=== PATIENT | female | born 1985 | race Hispanic/Latino ===

== ENCOUNTER → 2019-01-28 16:21 | Outpatient (CLI) | payer OTHER, MEDICAID, SELFPAY ==
[2019-01-28 20:23] LABS: Urine N gonorrhoeae NOT DETECTED
[2019-01-28 20:49] LABS: Urine Chlamydia NOT DETECTED
== END ==
PROVIDERS: Visit Provider Physician Assistant
DX: Z11.3 Encounter for screening for infections with a predominantly sexual mode of transmission (principal)
CPT/HCPCS: 87491; 87591

== ENCOUNTER → 2019-01-28 16:38 | Outpatient (CLI) | payer OTHER, MEDICAID, SELFPAY ==
[2019-01-28 18:11] LABS: Hepatitis B Surface Antigen NEGATIVE s/c (NEGATIVE)
[2019-01-28 18:22] LABS: HIV 1 and 2 Antibody NEGATIVE (NEGATIVE); Hep C Virus Ab w/Reflex Quant NEGATIVE s/c (NEGATIVE)
[2019-01-30 17:23] LABS: RPR Screen Nonreactive (Nonreactive)
== END ==
PROVIDERS: Visit Provider Physician Assistant
DX: Z11.3 Encounter for screening for infections with a predominantly sexual mode of transmission (principal)
CPT/HCPCS: 36415; 86592; 86703; 86803; 87340; 87491; 87591

== ENCOUNTER 2019-03-27 09:04 | Emergency (ER) | payer OTHER, MEDICAID, SELFPAY ==
[2019-03-27 09:04] VITALS: BP 108/67; PULSE 72; RESP 16; TEMP 37.3; O2SAT 99
--- NOTE | 2019-03-27 09:36 | ED_ITS ---
HPI - Fall General Chief Complaint: Fall Stated Complaint: Fall at work/rt side and leg pain DEAF Time Seen by Provider: 03/27/19 09:35 Source: patient Mode of arrival: ambulatory Limitations: no limitations History of Present Illness HPI Narrative: 33-year-old deaf female who is seen in the emergency department after ground level fall. Patient was walking in a lot when she tripped or fell over a driving bump/speed bump. Patient states that she sort of tripped fell with her right arm outstretched but also hit her on the right side of her chest and her right leg. And sort of did a tumbling fall into a ditch. Patient did not fall a significant height. Patient did not hit her head, she denies loss of consciousness. She did states short of breath when she landed on her chest but no longer. She denies any nausea or vomiting. She does have an abrasion on her right porter. Patient states her tetanus is up-to-date. She does take medications for seizure including Keppra, Topamax, folic acid and took 1 ibuprofen for pain prior to arrival. Related Data Home Medications Medication Instructions Recorded Confirmed trazodone #0 08/01/17 03/19/19 levetiracetam 500 mg PO BID 03/27/19 03/27/19 topiramate 03/27/19 topiramate 03/27/19 Previous Rx's Medication Instructions Recorded lamotrigine [Lamictal] 100 mg PO BID #60 tab 09/23/16 Allergies Allergy/AdvReac Type Severity Reaction Status Date / Time latex Allergy Mild ITCHING Verified 03/19/19 15:16 morphine Allergy Mild Verified 03/19/19 15:16 acetaminophen [From Fioricet] AdvReac Verified 03/27/19 09:20 butalbital [From Fioricet] AdvReac Verified 03/27/19 09:20 caffeine [From Fioricet] AdvReac Verified 03/27/19 09:20 Review of Systems Review of Systems ROS Unobtainable: All systems reviewed & are unremarkable except as noted in HPI and below Exam Narrative Exam Narrative: GEN: well nourished, well appearing female, alert and oriented x 3, patient appears to be in mild distress. HEENT: Atraumatic, pupils are equal round reactive to light, extraocular movements are intact, nares are clear, no facial trauma noted. HEART: Regular rate and rhythm without murmur, clicks, rubs. No carotid bruits, pulses are equal in upper and lower extremities LUNGS:Lungs clear to auscultation, no wheezes, rales, crackles, chest moves symmetrically ABD:bowel sounds normal, soft, non-tender, no guarding, rebound, rigidity, no masses noted, no hepatosplenomegaly :No CVA tenderness BACK: No cervical, thoracic or lumbar vertebral point tenderness. Patient has normal range of motion. Patient's gait is until. Rectal exam is deferred. Muscle strength is 5/5 in lower extremities, DTRs are 2/4 and lower extremities. Normal sensation in all 5 extremities. MSCL: Patient has mild tenderness over the right ribs but has full range of motion. She also has some mild tenderness over the hip and thigh although she is ambulating, no muscle atrophy, muscles strength 5/5 upper and lower extremities, full range of motion, normal gait NEURO:CN 2-12 intact, sensation normal. SKIN: Patient has an abrasion on her right anterior porter but does not appear deep or gapped that is 4cm in length. Initial Vital Signs Initial Vital Signs: Vital Signs Temperature 99.2 F 03/27/19 09:04 Pulse Rate 72 03/27/19 09:04 Respiratory Rate 16 03/27/19 09:04 Blood Pressure 108/67 03/27/19 09:04 Pulse Oximetry 99 03/27/19 09:04 [facility] Surgical History Status post appendectomy Status post loop electrosurgical excision procedure (LEEP) of cervix Social History Smoking Status: Never smoker Social History Smoking Status: Never smoker Scores GCS [place] coma scale eye opening: Spontaneous [place] coma scale verbal response: Orientated [place] coma scale motor response: Obey commands [place] coma scale total score: 15 Course Orders Ordered: ED Orders 03/27/19 09:35 XR chest 1V Stat XR hip w pel if done RT 2V Stat Discontinued Medications Bacitracin (Bacitracin) 1 applic TOP NOW ONE Stop: 03/27/19 11:11 Last Admin: 03/27/19 11:33 Dose: 1 applic Documented by: MEISENB Ketorolac Tromethamine (Toradol) 30 mg IM NOW ONE Stop: 03/27/19 09:36 Last Admin: 03/27/19 09:52 Dose: 30 mg Documented by: LAUREN Vital Signs Vital signs: Vital Signs - 8 hr 03/27/19 09:04 03/27/19 11:07 Temperature 99.2 F Pulse Rate 72 68 Respiratory Rate 16 16 Blood Pressure 108/67 Blood Pressure [Left Arm] 95/58 L Pulse Oximetry 99 99 MDM - Fall Imaging Data Chest x-ray: Radiologist's impression: [address] [address] XRay Report Signed Patient: Eli Stevens [facility]#: [id number] : 1985Acct:[id number] Age/Sex: 33 / FDate of Service: 03/27/19 Loc: ED Accession Number: [id number] Procedure: XR chest 1V Ordering Provider: Kelly Austin D.O. PROCEDURE: XR CHEST 1V INDICATIONS: fall, right rib pain TECHNIQUE: One view of the chest was acquired. COMPARISON: [facility], CHEST 1 VIEW, 05/18/2014, 7:42. FINDINGS: Surgical changes and devices: None. Lungs and pleura: Lungs are clear. No pleural effusions or pneumothorax. Mediastinum: Mediastinal contours appear normal. Heart size is normal. Bones and chest wall: No suspicious bony lesions. Overlying soft tissues appear unremarkable. IMPRESSION: No acute cardiopulmonary findings. Dictated by: Rosy Eason M.D. on 03/27/2019 at 10:20 Approved by: Rosy Eason M.D. on 03/27/2019 at 10:20 Hip xray: Radiologist's impression: [address] [address] XRay Report Signed Patient: Eli Stevnes [facility]#: [id number] : 1985Acct:[id number] Age/Sex: 33 / FDate of Service: 03/27/19 Loc: ED Accession Number: [id number] Procedure: XR hip w pel if done RT 2V Ordering Provider: Kelly Austin D.O. PROCEDURE: XR HIP W PEL IF DONE RT 2V INDICATIONS: right hip/leg pain TECHNIQUE: AP pelvis with lateral view(s) of the right hip(s). COMPARISON: [facility], CR, XR CHEST 1V, 03/27/2019, 9:40. FINDINGS: Bones: No fractures or dislocations. Pelvic ring appears intact. No suspicious bony lesions. Soft tissues: The visualized bowel gas pattern is normal. No suspicious soft tissue calcifications. IMPRESSION: No acute radiographic findings. If pain persists, followup imaging in 5-7 days is recommended to exclude occult fracture. Dictated by: Rosy Eason M.D. on 03/27/2019 at 10:20 Approved by: Rosy Eason M.D. on 03/27/2019 at 10:21 [facility] Narrative Medical decision making narrative: No fracture, patient does have an abrasion on her anterior porter and likely has some discomfort secondary to rib contusion although no ecchymosis is noted. Plan to continue ibuprofen and Tylenol as needed. Discharge Plan Departure Patient Disposition: Home Clinical Impression: Abrasion of leg, right, Contusion of thigh, right, Contusion of rib, Fall Discharge Date/Time: 03/27/19 11:27 Instructions: DI for Abrasion Activity Restrictions/Additional Instructions: Follow-up with primary care in the next 5-7 days if your symptoms are not improving. Occasionally individuals can have very small or occult fractures that are not noted until the bone is healing and these can be detected on repeat x-rays in 7-10 days from initial injury. Recommend Tylenol up to a 1000 mg every 8 hours and/or ibuprofen up to 800 mg every 8 hours as needed for pain. You may use moist heat to the affected area. Wound Care: Keep wound(s) clean and dry. Wash twice daily with soap and water only. Do not use over the counter products (alcohol or peroxide)on the wounds unless instructed by a physician, you may apply triple antibiotic ointment twice daily to the abrasion on your porter Return if fever greater than 100.4 Fahrenheit, increased swelling, increasing pain or worsening symptoms such as increased discharge or spreading redness. New lightheadedness, passing out, chest pain or shortness of breath that is worsening, persistent vomiting, new weakness, numbness, rapidly spreading bruising or other new or concerning symptoms. Prescriptions: No Action lamotrigine [Lamictal] 100 MG tablet 100 mg PO BID Qty: 60 RF: 3 trazodone 50 MG tablet Qty: 0 RF: 0 levetiracetam 500 mg tablet 500 mg PO BID RF: 0 topiramate 25 mg tablet RF: 0 topiramate 50 mg tablet RF: 0
[2019-03-27] MEDS: KETOROLAC 60 MG/2 ML VIAL 30 MG IM (09:52)
--- NOTE | 2019-03-27 10:30 | PC.NURSE ---
reports tailbone pain
[2019-03-27 11:07] VITALS: BP 95/58; PULSE 68; RESP 16; O2SAT 99
[2019-03-27] MEDS: BACITRACIN OINT 0.9 GM PCKT 1 APPLIC TOP (11:33)
== END 2019-03-27 11:27 | disposition home or self-care (01) ==
PROVIDERS: Emergency Provider Emergency Medicine
DX: S80.811A Abrasion, right lower leg, initial encounter (principal); S70.11XA Contusion of right thigh, initial encounter; S20.219A Contusion of unspecified front wall of thorax, initial encounter; W19.XXXA Unspecified fall, initial encounter
CPT/HCPCS: 71045; 73502; 96372; 99283; J1885

== ENCOUNTER 2019-04-02 11:36 | Emergency (ER) | payer OTHER, MEDICAID, SELFPAY ==
--- NOTE | 2019-04-02 12:12 | DI.RAD.S_ITS ---
PROCEDURE: XR RIBS LT MIN 3V W CXR1V INDICATIONS: s/p fall 6 days ago, pain not improving TECHNIQUE: 2 views of the left ribs were acquired, along with a single view chest. COMPARISON: None. FINDINGS: Surgical changes and devices: None. Bones and chest wall: No fractures or dislocations. No suspicious bony lesions. Overlying soft tissues appear unremarkable. Lungs and pleura: No pleural effusions or pneumothorax. Lungs appear clear. Mediastinum: Mediastinal contours appear normal. Heart size is normal. IMPRESSION: No fracture found, no pneumothorax identified. Dictated by: Hal Delgado M.D. on 04/02/2019 at 12:53 Approved by: Hal Delgado M.D. on 04/02/2019 at 12:54
--- NOTE | 2019-04-02 12:14 | ED.DIZZY ---
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 She reports ear pressure but no other cold symptoms. She had similar symptoms in the past but had not lasted this long or this severe. She also states she has been hearing a loud noise when the cars are passing-by and some humming nose. Patient denies urinary symptoms, diarrhea, chest pain, breathing difficulty. Patient reports some blurred vision with this. Patient was seen here 6 days ago after she had fall after trip on a parking bump. She was evaluated and had imaging tests done on right hip and chest. Patient reports since then her dizziness got worse and feeling more tired with pain all over her body. She reports no vomiting but has nausea. Patient also reports pain on left ribs and back has not been improving even after taking [id number] ibuprofen. She has a history of seizure and had last seizure about 2 weeks ago. Related Data Home Medications Medication Instructions Recorded Confirmed trazodone #0 08/01/17 03/19/19 levetiracetam 500 mg PO BID 03/27/19 03/27/19 topiramate 03/27/19 topiramate 03/27/19 Previous Rx's Medication Instructions Recorded lamotrigine [Lamictal] 100 mg PO BID #60 tab 09/23/16 meclizine 25 mg PO BID-TID PRN #10 tab 04/02/19 ondansetron 4 mg PO Q6-8H PRN #7 tab 04/02/19 Allergies Allergy/AdvReac Type Severity Reaction Status Date / Time latex Allergy Mild ITCHING Verified 03/19/19 15:16 morphine Allergy Mild Verified 03/19/19 15:16 acetaminophen [From Fioricet] AdvReac Verified 03/27/19 09:20 butalbital [From Fioricet] AdvReac Verified 03/27/19 09:20 caffeine [From Fioricet] AdvReac Verified 03/27/19 09:20 Review of Systems <MALINA Toth - Last Filed: 04/03/19 02:24> Review of Systems Narrative: General: Reports generalized weakness. Denies fever, chills, malaise, sweats. HEENT: Reports ear pressure and dizziness. Denies sinus pain, ear pain, sore throat, difficulty swallowing. Respiratory: Denies dyspnea, cough, wheezing, hemoptysis, sputum. Cardiovascular: Denies chest pain, palpitations, orthopnea, edema. Gastrointestinal: Reports nausea. Denies vomiting, abdominal pain, diarrhea, constipation, melena. : Denies dysuria, frequency, incontinence, hematuria, urinary retention. Musculoskeletal: Reports left ribs and back pain. Denies weakness, joint pain. Skin: Abrasions to left lower leg since fall last week. Otherwise denies rash, skin lesions, or other. Neurologic: See HPI Psychiatric: No concerning psychosocial issues. 12-point review of systems is negative except for those stated above. PFSH <MALINA Toth - Last Filed: 04/03/19 02:24> Surgical History Status post appendectomy Status post loop electrosurgical excision procedure (LEEP) of cervix Social History Smoking Status: Never smoker Social History Smoking Status: Never smoker Exam <MALINA Toth - Last Filed: 04/03/19 02:24> Narrative Exam Narrative: GEN: Alert, oriented x 3, well appearing and nourished, and in no acute distress. Head: Normal cephalic, atraumatic. No scalp or temporal tenderness, palpable mass or rash. EYES: Pupils are equal, round, and reactive to light and accommodation. Extraocular muscles are intact bilaterally. There is no subconjunctival hemorrhage, exudate and sclera non-icteric. ENT: Bilateral auditory canals and tympanic membranes clear. Hearing grossly intact. Nose without bleeding, purulent discharge or deviation. Facial sinuses nontender to palpate. Mucous membrane moist, no mucosal lesion. Throat without erythema, tonsillar hypertrophy or exudate. Uvula in midline, airway patent. Neck: Trachea in midline. No JVD, non-tender without lymphadenopathy. No masses or thyroid megaly. Supple, non-tender and no meningeal signs. CARDIAC: Normal regular rate and rhythm without murmurs, gallops, or rubs. No chest wall tenderness. No peripheral edema, cyanosis or pallor. Capillary refill is less than 2 seconds. RESPIRATORY: Lungs are cleat to auscultate bilaterally. No cough, wheezes, rales, or rhonchi. No stridor, respiratory distress, increase work of breathing, or accessary muscle used. ABD: Abdomen soft, nontender and non-distended. No guarding or rebound tenderness to palpate. Bowel sounds are normal in all 4 quadrants. There is no palpable masses or organomegaly. EXT: Full painless ROM of all extremities with no loss of sensation, strength, effusion or edema. SKIN: Abrasion to left lower leg. Warm, dry, normal color for patient. No erythema, lesions or rash over visible areas. BACK: Tender to palpate in L anterior and posterior ribs without deformity or crepitance. NEUROLOGICAL: Alert and oriented to place, time and person. Sensation and motor function intact bilaterally. No facial droops, dysphagia. PSYCHIATRIC: Good judgement and reason, without hallucinations, abnormal affect or abnormal behaviors during the examination. Patient is not suicidal. Initial Vital Signs Initial Vital Signs: Vital Signs Temperature 97.8 F 04/02/19 12:19 Pulse Rate 72 04/02/19 12:19 Respiratory Rate 16 04/02/19 12:19 Blood Pressure 136/67 04/02/19 12:19 Pulse Oximetry 100 04/02/19 12:19 <Parminder Vallejo DO - Last Filed: 04/10/19 18:55> Initial Vital Signs Initial Vital Signs: Vital Signs Temperature 97.8 F 04/02/19 12:19 Pulse Rate 72 04/02/19 12:19 Respiratory Rate 16 04/02/19 12:19 Blood Pressure 136/67 04/02/19 12:19 Pulse Oximetry 100 04/02/19 12:19 Scores <MALINA Toth - Last Filed: 04/03/19 02:24> GCS [place] coma scale eye opening: Spontaneous [place] coma scale verbal response: Orientated [place] coma scale motor response: Obey commands [place] coma scale total score: 15 Course <MALINA Toth - Last Filed: 04/03/19 02:24> Orders Ordered: Discontinued Medications Meclizine HCl (Antivert) 25 mg PO NOW ONE Stop: 04/02/19 12:13 Last Admin: 04/02/19 12:40 Dose: 25 mg Documented by: ZEB Ondansetron HCl (Zofran) 4 mg IV NOW ONE Stop: 04/02/19 12:13 Last Admin: 04/02/19 12:40 Dose: 4 mg Documented by: ZEB Vital Signs Vital signs: Vital Signs - 8 hr 04/02/19 12:19 Temperature 97.8 F Pulse Rate 72 Respiratory Rate 16 Blood Pressure 136/67 Pulse Oximetry 100 <Parminder Vallejo DO - Last Filed: 04/10/19 18:55> Orders Ordered: Discontinued Medications Meclizine HCl (Antivert) 25 mg PO NOW ONE Stop: 04/02/19 12:13 Last Admin: 04/02/19 12:40 Dose: 25 mg Documented by: ZEB Ondansetron HCl (Zofran) 4 mg IV NOW ONE Stop: 04/02/19 12:13 Last Admin: 04/02/19 12:40 Dose: 4 mg Documented by: ZEB Vital Signs Vital signs: Vital Signs - 8 hr 04/02/19 12:19 Temperature 97.8 F Pulse Rate 72 Respiratory Rate 16 Blood Pressure 136/67 Pulse Oximetry 100 MDM - Dizziness <MALINA Toth - Last Filed: 04/03/19 02:24> Differential Diagnosis Differential diagnosis: Likely benign paroxysmal positional vertigo and acute vestibular neuronitis Medical Records Attestation: I reviewed the patient's medical records. Lab Data Attestation: I reviewed the patient's lab results. Result diagrams: 04/02/19 12:13 04/02/19 12:13 Labs: Lab Results 04/02/19 04/02/19 Range/Units 12:13 12:13 WBC 6.2 (4.5-11.0) X10^3/uL RBC 4.28 (4.0-5.2) X10^6/uL Hgb 13.2 (12.0-16.0) g/dL Hct 38.6 (36-46) % MCV 90.3 (80-100) fL MCH 30.9 (26-34) PG MCHC 34.2 (30-36) % RDW 13.6 (11.6-14.8) % Plt Count 269 (150-400) X10^3/uL Neut % (Auto) 63.9 (50-75) % Lymph % (Auto) 24.0 L (25-40) % [place] % (Auto) 9.3 (3-14) % Eos % (Auto) 1.9 L (2-4) % Baso % (Auto) 0.9 (0-2) % Neut # (Auto) 4000 (7211-5071) /uL Lymph # (Auto) 1500 (6595-6602) /uL [place] # (Auto) 600 (0-900) /uL Eos # (Auto) 100 (0-450) /uL Baso # (Auto) 100 (0-100) /uL Sodium 140 (137-145) mmol/L Potassium 3.5 (3.4-5.1) mmol/L Chloride 106 (98-107) mmol/L Carbon Dioxide 24 (22-32) mmol/L BUN 16 (7-17) mg/dL Creatinine 0.70 (0.52-1.04) mg/dL Estimated GFR > 60.0 (>60) mL/min BUN/Creatinine Ratio 22.9 H (6-22) Glucose 72 (70-100) mg/dL Calcium 9.0 (8.4-10.2) mg/dL Point of Care Testing Test Results Negative Urine Dip Bedside Urine Glucose Negative Bedside Urine Bilirubin - Negative Bedside Urine Ketone - Negative Urine Specific [place] 1.015 Bedside Urine Occult Blood - Negative Bedside Urine pH 7.0 Bedside Urine Protein - Negative Bedside Urine Urobilinogen - Negative Bedside Urine Nitrite - Negative Bedside Urine Leukocytes - Negative Esterase Imaging Data XR-Ribs L: Radiologist's impression: [address] [address] XRay Report Signed Patient: Eli Stevens [facility]#: [id number] : 1985Acct:[id number] Age/Sex: 33 / FDate of Service: 04/02/19 Loc: ED Accession Number: [id number] Procedure: XR ribs LT min 3V w CXR1V Ordering Provider: Dakota Wagner PROCEDURE: XR RIBS LT MIN 3V W CXR1V INDICATIONS: s/p fall 6 days ago, pain not improving TECHNIQUE: 2 views of the left ribs were acquired, along with a single view chest. COMPARISON: None. FINDINGS: Surgical changes and devices: None. Bones and chest wall: No fractures or dislocations. No suspicious bony lesions. Overlying soft tissues appear unremarkable. Lungs and pleura: No pleural effusions or pneumothorax. Lungs appear clear. Mediastinum: Mediastinal contours appear normal. Heart size is normal. IMPRESSION: No fracture found, no pneumothorax identified. Dictated by: Hal Delgado M.D. on 04/02/2019 at 12:53 Approved by: Hal Delgado M.D. on 04/02/2019 at 12:54 ECG Data Attestation: I personally reviewed and interpreted this ECG as follows: Prior ECG tracings: available for review Interpretation: Sinus bradycardia with sinus arrhythmia rate at 56. Normal [place]. No ST elevation or depressioin. Previous EKG-SR MDM Narrative Medical decision making narrative: This patient reports dizziness with spinning sensation and left posterior and lateral rib pain since she fell 6 days ago after she had mechanical fall. She reports hearing loud noises, humming sounds and ear pressure without having other URI symptoms. She has a history of deaf and states usually does not hear noises. There is no obvious neurological deficit per exam except hearing. Patient was medicated with meclizine and Zofran for vertigo sensation. EKG was normal sinus [place] rhythm. Rib/chest x-ray was obtained without acute findings such as fracture, pneumonia, dislocation. Blood tests were remarkable including CBC and BMP. Urine test was negative for infection and . Patient reports her dizziness has improved after the medication and would like to go home by catching 4 o'clock bus. Return precautions were discussed with the patient and patient advised to follow with the primary care physician at [facility]. Patient was discharged to home with meclizine and Zofran. Patient agrees with treatment plan and no further questions were expressed at this time. <Parminder Vallejo DO - Last Filed: 04/10/19 18:55> Lab Data Labs: Lab Results 04/02/19 04/02/19 Range/Units 12:13 12:13 WBC 6.2 (4.5-11.0) X10^3/uL RBC 4.28 (4.0-5.2) X10^6/uL Hgb 13.2 (12.0-16.0) g/dL Hct 38.6 (36-46) % MCV 90.3 (80-100) fL MCH 30.9 (26-34) PG MCHC 34.2 (30-36) % RDW 13.6 (11.6-14.8) % Plt Count 269 (150-400) X10^3/uL Neut % (Auto) 63.9 (50-75) % Lymph % (Auto) 24.0 L (25-40) % [place] % (Auto) 9.3 (3-14) % Eos % (Auto) 1.9 L (2-4) % Baso % (Auto) 0.9 (0-2) % Neut # (Auto) 4000 (0218-6408) /uL Lymph # (Auto) 1500 (2273-5846) /uL [place] # (Auto) 600 (0-900) /uL Eos # (Auto) 100 (0-450) /uL Baso # (Auto) 100 (0-100) /uL Sodium 140 (137-145) mmol/L Potassium 3.5 (3.4-5.1) mmol/L Chloride 106 (98-107) mmol/L Carbon Dioxide 24 (22-32) mmol/L BUN 16 (7-17) mg/dL Creatinine 0.70 (0.52-1.04) mg/dL Estimated GFR > 60.0 (>60) mL/min BUN/Creatinine Ratio 22.9 H (6-22) Glucose 72 (70-100) mg/dL Calcium 9.0 (8.4-10.2) mg/dL Point of Care Testing Test Results Negative Urine Dip Bedside Urine Glucose Negative Bedside Urine Bilirubin - Negative Bedside Urine Ketone - Negative Urine Specific [place] 1.015 Bedside Urine Occult Blood - Negative Bedside Urine pH 7.0 Bedside Urine Protein - Negative Bedside Urine Urobilinogen - Negative Bedside Urine Nitrite - Negative Bedside Urine Leukocytes - Negative Esterase Discharge Plan Departure Patient Disposition: Home Clinical Impression: Vertigo Discharge Date/Time: 04/02/19 14:09 Instructions: DI for Vertigo Activity Restrictions/Additional Instructions: You have been diagnosed with [dizziness/vertigo. Your x-ray test in her ribs does not show fracture or other acute findings and you're blood and urine tests were unremarkable.]. What to do: *Take your medications as directed. Meclizine will help with the dizziness and vertigo but this may cause drowsiness. Please be careful with balance. Zofran is ordered for nausea he can use both medications as needed for you're symptoms. *Follow up with your primary care provider at [facility] in 2-3 days, call for an appointment. Let them know you were seen in the ED and that we asked you to be seen in follow up. *Return to ED if you have any new, worsening, or concerning symptoms, such as [chest pain, breathing difficulty, unable to tolerate fluids, weakness to limb, vision change, worsening dizziness/vertigo, any acute concerns]. Prescriptions: New ondansetron 4 mg tablet,disintegrating 4 mg PO Q6-8H PRN (Reason: nausea and vomiting) Qty: 7 RF: 0 meclizine 25 mg tablet,chewable 25 mg PO BID-TID PRN (Reason: dizziness or vertigo) Qty: 10 RF: 0 No Action lamotrigine [Lamictal] 100 MG tablet 100 mg PO BID Qty: 60 RF: 3 trazodone 50 MG tablet Qty: 0 RF: 0 levetiracetam 500 mg tablet 500 mg PO BID RF: 0 topiramate 25 mg tablet RF: 0 topiramate 50 mg tablet RF: 0 <Parminder Vallejo, DO - Last Filed: 04/10/19 18:55> Sign Out Provider Sign Out Attestation: I was available for consultation during this patient's emergency department encounter
[2019-04-02 12:19] VITALS: BP 136/67; PULSE 72; RESP 16; TEMP 36.6; O2SAT 100; BMI 25.0
[2019-04-02 12:28] LABS: Add Manual Diff / Slide Review NO; Basophils Absolute Auto 100 /uL (0-100); Basophils Percent Auto 0.9 % (0-2); Eosinophils Absolute Auto 100 /uL (0-450); Eosinophils Percent Auto 1.9 % (2-4); Hematocrit 38.6 % (36-46); Hemoglobin 13.2 g/dL (12.0-16.0); Lymphocytes Absolute Auto 1500 /uL (1100-4500); Mean Corpuscular HGB Conc 34.2 % (30-36); Mean Corpuscular Hemoglobin 30.9 PG (26-34); Mean Corpuscular Volume 90.3 fL (80-100); Monocytes Absolute Auto 600 /uL (0-900); Monocytes Percent Auto 9.3 % (3-14); Neutrophils Absolute Auto 4000 /uL (1500-7000); Neutrophils Percent Auto 63.9 % (50-75); Platelet Count 269 X10^3/uL (150-400); Red Blood Cell Count 4.28 X10^6/uL (4.0-5.2); Red Cell Distribution Width 13.6 % (11.6-14.8); White Blood Cell Count 6.2 X10^3/uL (4.5-11.0)
[2019-04-02] MEDS: ONDANSETRON 4 MG/2 ML INJ IV (12:40)
[2019-04-02] MEDS: MECLIZINE HCL 12.5 MG TABLET 25 MG PO (12:40)
[2019-04-02 12:43] LABS: BUN Creatinine Ratio 22.9 (6-22); Blood Urea Nitrogen 16 mg/dL (7-17); Carbon Dioxide 24 mmol/L (22-32); Chloride 106 mmol/L (98-107); Estimated Glomerular Filt Rate > 60.0 mL/min (>60); Glucose 72 mg/dL (70-100); HEMOLYSIS 18 (0-50); Potassium 3.5 mmol/L (3.4-5.1); Sodium 140 mmol/L (137-145)
[2019-04-02 14:05] VITALS: BP 115/74; PULSE 59; RESP 17; O2SAT 100
--- NOTE | 2019-04-02 14:08 | PC.NURSE ---
DC instructions confirmed by language interpreter. verbalized understanding.
== END 2019-04-02 14:09 | disposition home or self-care (01) ==
PROVIDERS: Emergency Provider Nurse Practitioner Family
DX: R42 Dizziness and giddiness (principal); R07.81 Pleurodynia; Y99.0 Civilian activity done for income or pay
CPT/HCPCS: 36591; 71101; 80048; 81003; 81025; 85025; 93005; 96374; 99283; 99285; J2405

== ENCOUNTER 2019-06-29 05:57 | Emergency (ER) | payer OTHER, MEDICAID, SELFPAY ==
--- NOTE | 2019-06-29 06:04 | ED.PREGNANCY ---
HPI - <Master Barros DO - Last Filed: 06/29/19 22:45> General Chief complaint: OB/Uterine Contractions Stated complaint: thinks she having Miscarrage Time Seen by Provider: 06/29/19 06:03 Source: patient Mode of arrival: Ambulatory Limitations: language barrier History of Present Illness HPI Narrative: 33-year-old female nonsmoker with history of seizures is at unknown gestational age who presents with cramping and mild bleeding over the past few days. She denies fever or chills. She is not dizzy nor weak or lightheaded. She was seen and evaluated an outside facility a few weeks ago but is unsure of what the workup showed. She has been trying to obtain OB follow-up but has been unsuccessful thus far. She denies dysuria, frequency or urgency. She is not using pads so it is unclear exactly how much bleeding she is having MD Complaint: vaginal bleeding Onset (ago): day(s) Pain Consistency: intermittent Location: pelvis Severity: moderate Quality: Cramping Relieving factors: none Exacerbating factors: none Associated symptoms: vaginal bleeding Vaginal bleeding: heavy and clots Patient : Yes OB History - Current : no complications OB History - Previous Pregnancies: no complications care: none Related Data Home Medications Medication Instructions Recorded Confirmed trazodone #0 08/01/17 03/19/19 levetiracetam 500 mg PO BID 03/27/19 03/27/19 topiramate 03/27/19 topiramate 03/27/19 Previous Rx's Medication Instructions Recorded lamotrigine [Lamictal] 100 mg PO BID #60 tab 09/23/16 meclizine 25 mg PO BID-TID PRN #10 tab 04/02/19 ondansetron 4 mg PO Q6-8H PRN #7 tab 04/02/19 Allergies Allergy/AdvReac Type Severity Reaction Status Date / Time latex Allergy Mild ITCHING Verified 03/19/19 15:16 morphine Allergy Mild Verified 03/19/19 15:16 acetaminophen [From Fioricet] AdvReac Verified 03/27/19 09:20 butalbital [From Fioricet] AdvReac Verified 03/27/19 09:20 caffeine [From Fioricet] AdvReac Verified 03/27/19 09:20 Review of Systems <Master Barros DO - Last Filed: 06/29/19 22:45> Review of Systems Narrative: Patient is deaf, review of systems and history are obtained using full time staff interpreter on iPad Constitutional Constitutional: Denies chills, Denies fatigue, Denies fever(s), Denies frequent falls, Denies lethargy and Denies weakness Eyes Eyes: Denies change in vision, Denies eye discharge, Denies irritation and Denies loss of vision ENT Ears, Nose, Mouth, and Throat: Denies change in voice, Denies dizziness, Denies neck pain, Denies sore throat and Denies throat swelling Cardiovascular Cardiovascular: Denies chest pain, Denies irregular heart rhythm, Denies lightheadedness, Denies palpitations, Denies dyspnea, Denies dyspnea on exertion and Denies orthopnea Respiratory Respiratory: Denies cough, Denies dyspnea, Denies dyspnea on exertion and Denies wheezing Gastrointestinal Gastrointestinal: Denies abdominal pain, Denies change in bowel habits, Denies diarrhea, Denies nausea and Denies vomiting Genitourinary Genitourinary: Reports abnormal vaginal bleeding, Denies hematuria, Reports pelvic pain, Denies flank pain, Denies urinary incontinence and Denies urinary urgency Musculoskeletal Musculoskeletal: Denies back pain, Denies muscle weakness, Denies neck pain, Denies numbness and Denies tingling Integumentary/Breasts Skin/Breast: Denies pruritus, Denies erythema, Denies rash and Denies wounds Neurologic Neurologic: Denies behavioral changes, Denies confusion, Denies dizziness, Denies frequent falls, Denies loss of vision, Denies numbness, Denies tingling and Denies weakness Psychiatric Psychiatric: Denies anxiety, Denies behavioral changes, Denies confusion, Denies depression, Denies homicidal ideation and Denies suicidal ideation Endocrine Endocrine: Denies fatigue, Denies flushing and Denies palpitations Hematologic/Lymphatic Hematologic/Lymphatic: Denies easy bruising Allergic/Immunologic Allergic/Immunologic: Denies urticaria, Denies throat swelling and Denies wheezing PMFSH - <Master Barros, - Last Filed: 06/29/19 22:45> Past Medical History Patient : Yes Exam <Master Barros, - Last Filed: 06/29/19 22:45> Narrative Exam Narrative: GENERAL: [33] year old patient appears stated age. Well-nourished, well-developed patient, in mild distress. HEAD: Atraumatic. Normocephalic. EYES: Pupils equal round and reactive. Extraocular motions intact. No scleral icterus. No injection or drainage. ENT: Nose without bleeding, purulent drainage. Throat without erythema, tonsillar hypertrophy or exudate. Airway patent. NECK: Trachea midline. Non tender CARDIOVASCULAR: Regular rate and rhythm without murmurs, gallops, or rubs. RESPIRATORY: Clear to auscultation. Breath sounds equal bilaterally. No wheezes, rales, or rhonchi. GASTROINTESTINAL: Abdomen soft, non-tender, nondistended. EXTREMITIES: No edema or joint tenderness. BACK: Nontender without deformity or crepitance. No flank tenderness. NEURO: AOx3. SKIN: No rash or erythema of visible areas Initial Vital Signs Initial Vital Signs: Vital Signs Temperature 98.1 F 06/29/19 06:05 Pulse Rate 76 06/29/19 06:05 Respiratory Rate 15 06/29/19 06:05 Blood Pressure 99/61 06/29/19 06:05 Pulse Oximetry 100 06/29/19 06:05 <Lesley Petty DO - Last Filed: 06/29/19 09:05> Initial Vital Signs Initial Vital Signs: Vital Signs Temperature 98.1 F 06/29/19 06:05 Pulse Rate 76 06/29/19 06:05 Respiratory Rate 15 06/29/19 06:05 Blood Pressure 99/61 06/29/19 06:05 Pulse Oximetry 100 06/29/19 06:05 Course <Master Barros DO - Last Filed: 06/29/19 22:45> Course Course Narrative: patient signed out to Dr. Petty for final disposition Orders Ordered: ED Orders 06/29/19 06:17 US pelvic complete Stat 06/29/19 06:30 ABO RH Type Stat Complete Blood Count AUTO DIFF Stat HCG Quantitative Stat Vital Signs Vital signs: Vital Signs - 8 hr 06/29/19 06:05 Temperature 98.1 F Pulse Rate 76 Respiratory Rate 15 Blood Pressure 99/61 Pulse Oximetry 100 <DO Marino Weems Last Filed: 06/29/19 09:05> Orders Ordered: ED Orders 06/29/19 06:17 US pelvic complete Stat 06/29/19 06:30 ABO RH Type Stat Complete Blood Count AUTO DIFF Stat HCG Quantitative Stat Vital Signs Vital signs: Vital Signs - 8 hr 06/29/19 06:05 Temperature 98.1 F Pulse Rate 76 Respiratory Rate 15 Blood Pressure 99/61 Pulse Oximetry 100 MDM - OB/Uterine Contractions <Master Barros DO - Last Filed: 06/29/19 22:45> Lab Data Result diagrams: 06/29/19 06:30 Labs: Lab Results 06/29/19 06/29/19 06/29/19 Range/Units 06:30 06:30 06:30 WBC 6.4 (4.5-11.0) X10^3/uL RBC 4.33 (4.0-5.2) X10^6/uL Hgb 13.6 (12.0-16.0) g/dL Hct 40.2 (36-46) % MCV 92.9 (80-100) fL MCH 31.5 (26-34) PG MCHC 33.9 (30-36) % RDW 13.6 (11.6-14.8) % Plt Count 271 (150-400) X10^3/uL Neut % (Auto) 69.0 (50-75) % Lymph % (Auto) 19.2 L (25-40) % [place] % (Auto) 8.8 (3-14) % Eos % (Auto) 2.4 (2-4) % Baso % (Auto) 0.6 (0-2) % Neut # (Auto) 4400 (4660-6723) /uL Lymph # (Auto) 1200 (7502-2676) /uL [place] # (Auto) 600 (0-900) /uL Eos # (Auto) 200 (0-450) /uL Baso # (Auto) 0 (0-100) /uL HCG, Quant 49.51 mIU/mL Blood Type O Positive <Lesley Petty DO - Last Filed: 06/29/19 09:05> Lab Data Attestation: I reviewed the patient's lab results. Labs: Lab Results 06/29/19 06/29/19 06/29/19 Range/Units 06:30 06:30 06:30 WBC 6.4 (4.5-11.0) X10^3/uL RBC 4.33 (4.0-5.2) X10^6/uL Hgb 13.6 (12.0-16.0) g/dL Hct 40.2 (36-46) % MCV 92.9 (80-100) fL MCH 31.5 (26-34) PG MCHC 33.9 (30-36) % RDW 13.6 (11.6-14.8) % Plt Count 271 (150-400) X10^3/uL Neut % (Auto) 69.0 (50-75) % Lymph % (Auto) 19.2 L (25-40) % [place] % (Auto) 8.8 (3-14) % Eos % (Auto) 2.4 (2-4) % Baso % (Auto) 0.6 (0-2) % Neut # (Auto) 4400 (3716-4803) /uL Lymph # (Auto) 1200 (9270-3862) /uL [place] # (Auto) 600 (0-900) /uL Eos # (Auto) 200 (0-450) /uL Baso # (Auto) 0 (0-100) /uL HCG, Quant 49.51 mIU/mL Blood Type O Positive Imaging Data US pelvic: Radiologist's impression: Caution: Report not yet finalized and possibly incomplete! PROCEDURE: US PELVIC COMPLETE INDICATIONS: ; BLEEDING, PAIN TECHNIQUE: Real-time scanning was performed of the pelvic organs, with image documentation. Additional endovaginal scanning was necessary due to incomplete visualization of the adnexal and endometrial structures by transabdominal scanning. COMPARISON: [facility], , PELVIC COMPLETE, 04/13/2016, 15:25. [facility], , ABDOMEN COMPLETE, 03/08/2016, 11:12. [facility], [place], PELVIC COMPLETE, 06/04/2015, 12:23. FINDINGS: Transabdominal scanning: Limited scanning through the kidneys shows no hydronephrosis. No pathologic free abdominal or pelvic fluid. Endovaginal scanning: Uterus: Uterus is normal in size at 9 x 4.4 x 5.6 cm. The endometrium measures 4 mm in combined thickness. No findings of intrauterine can be seen. Ovaries: The right ovary measures 2.8 x 1.7 x 2 cm. The left ovary measures 2.2 x 1.2 x 2.1 cm and demonstrates a complex nonvascular cystic focus that measures up to 1.3 cm. The ovaries otherwise have a normal sonographic appearance. No adnexal masses are seen. IMPRESSION: No findings of an intrauterine can be seen. Given the history, this is felt most likely to be related to a completed spontaneous miscarriage. Differential diagnosis includes ectopic , however. Likely left ovarian corpus luteum. Close clinical followup, with serial beta-hCG and serial ultrasound are recommended, as clinically appropriate. Dictated by: Barry Liu M.D. on 06/29/2019 at 6:53 Transcribed by: CAROLINE on 06/29/2019 at 7:02 MDM Narrative Medical decision making narrative: Patient signed out to me by Dr. Barros. Ultrasound does not show any IUP and HCG is under 100, confirms miscarriage. Passenger Brakeman used patient given results of testing. All questions have been addressed. At this time she does show likely complete miscarriage, recommend follow-up with PCP. Discharge Plan Departure Patient Disposition: Home Clinical Impression: Complete miscarriage Discharge Date/Time: 06/29/19 09:14 Instructions: Miscarriage Activity Restrictions/Additional Instructions: *You have been diagnosed with miscarriage *What to do: This is an unfortunate thing that has happened. You may experience some more cramping for the next few days *Continue to take medications as directed Ibuprofen 800 mg every 8 hours with food if needed for [id number] pain Tylenol 1000 mg every 6 hours if needed for [id number] pain do not see more than 4000 mg in 1 day *Follow up with your primary care provider in 2-3 days *Return to ER if you should have vaginal bleeding more than 1 super pad or tampon an hour, increased abdominal pain not told Tylenol or ibuprofen or any new, worsening or concerning symptoms Prescriptions: No Action lamotrigine [Lamictal] 100 MG tablet 100 mg PO BID Qty: 60 RF: 3 trazodone 50 MG tablet Qty: 0 RF: 0 levetiracetam 500 mg tablet 500 mg PO BID RF: 0 topiramate 25 mg tablet RF: 0 topiramate 50 mg tablet RF: 0 ondansetron 4 mg tablet,disintegrating 4 mg PO Q6-8H PRN (Reason: nausea and vomiting) Qty: 7 RF: 0 meclizine 25 mg tablet,chewable 25 mg PO BID-TID PRN (Reason: dizziness or vertigo) Qty: 10 RF: 0 Referrals: [facility] [Outside] Stand Alone Forms: Work Release Note
[2019-06-29 06:05] VITALS: BP 99/61; PULSE 76; RESP 15; TEMP 36.7; O2SAT 100; BMI 22.1
--- NOTE | 2019-06-29 06:17 | DI.US.S_ITS ---
PROCEDURE: US PELVIC COMPLETE INDICATIONS: ; BLEEDING, PAIN TECHNIQUE: Real-time scanning was performed of the pelvic organs, with image documentation. Additional endovaginal scanning was necessary due to incomplete visualization of the adnexal and endometrial structures by transabdominal scanning. COMPARISON: [facility], [place], PELVIC COMPLETE, 04/13/2016, 15:25. [facility], [place], ABDOMEN COMPLETE, 03/08/2016, 11:12. [facility], [place], PELVIC COMPLETE, 06/04/2015, 12:23. FINDINGS: Transabdominal scanning: Limited scanning through the kidneys shows no hydronephrosis. No pathologic free abdominal or pelvic fluid. Endovaginal scanning: Uterus: Uterus is normal in size at 9 x 4.4 x 5.6 cm. The endometrium measures 4 mm in combined thickness. No findings of intrauterine can be seen. Ovaries: The right ovary measures 2.8 x 1.7 x 2 cm. The left ovary measures 2.2 x 1.2 x 2.1 cm and demonstrates a complex nonvascular hypoechoic focus that measures up to 1.3 cm. The ovaries otherwise have a normal sonographic appearance. No adnexal masses are seen. IMPRESSION: No findings of an intrauterine can be seen. Given the history, this is felt most likely to be related to a completed spontaneous miscarriage. Differential diagnosis includes ectopic , however. Likely left ovarian corpus luteum. Close clinical followup, with serial beta-hCG and serial ultrasound are recommended, as clinically appropriate. Note: No significant discrepancy from the preliminary report. Dictated by: Barry Liu M.D. on 06/29/2019 at 6:53 Transcribed by: CAROLINE on 06/29/2019 at 7:02 Approved by: Barry Liu M.D. on 06/29/2019 at 8:40
--- NOTE | 2019-06-29 06:30 | PC.NURSE ---
Reeling Machine Operator Ipad in use at bedside
[2019-06-29 06:48] LABS: Add Manual Diff / Slide Review NO; Basophils Absolute Auto 0 /uL (0-100); Basophils Percent Auto 0.6 % (0-2); Eosinophils Absolute Auto 200 /uL (0-450); Eosinophils Percent Auto 2.4 % (2-4); Hematocrit 40.2 % (36-46); Hemoglobin 13.6 g/dL (12.0-16.0); Lymphocytes Absolute Auto 1200 /uL (1100-4500); Lymphocytes Percent Auto 19.2 % (25-40); Mean Corpuscular HGB Conc 33.9 % (30-36); Mean Corpuscular Hemoglobin 31.5 PG (26-34); Mean Corpuscular Volume 92.9 fL (80-100); Monocytes Absolute Auto 600 /uL (0-900); Monocytes Percent Auto 8.8 % (3-14); Neutrophils Absolute Auto 4400 /uL (1500-7000); Platelet Count 271 X10^3/uL (150-400); Red Blood Cell Count 4.33 X10^6/uL (4.0-5.2); Red Cell Distribution Width 13.6 % (11.6-14.8); White Blood Cell Count 6.4 X10^3/uL (4.5-11.0)
[2019-06-29 07:18] LABS: HCG Quantitative /Beta subunit 49.51 mIU/mL
--- NOTE | 2019-06-29 07:38 | PC.NURSE ---
Obtained patient care. report manager used for shift change. Patient has no questions at this time. Paper and pen left at bedside to aid in communication if needed. Call light in reach. Patient updated on plan of care.
[2019-06-29 09:00] VITALS: BP 118/76; PULSE 86; RESP 12; O2SAT 100
== END 2019-06-29 09:14 | disposition home or self-care (01) ==
PROVIDERS: Emergency Medicine; Emergency Provider Emergency Medicine
DX: O03.9 Complete or unspecified spontaneous abortion without complication (principal)
CPT/HCPCS: 36415; 76830; 76856; 84702; 85025; 86900; 86901; 99282; 99284

== ENCOUNTER 2019-08-21 10:30 | Emergency (ER) | payer OTHER, MEDICAID, SELFPAY ==
[2019-08-21 10:30] VITALS: BP 153/115; PULSE 83; RESP 18; TEMP 36.9; O2SAT 98
[2019-08-21 11:33] VITALS: BP 108/56; PULSE 71; RESP 20; O2SAT 93
--- NOTE | 2019-08-21 11:49 | DI.RAD.S_ITS ---
PROCEDURE: XR CHEST 2V INDICATIONS: chest pain TECHNIQUE: 2 views of the chest were acquired. COMPARISON: [facility], , XR CHEST 1V, 03/27/2019, 9:40. [facility], , CHEST 1 VIEW, 05/18/2014, 7:42. FINDINGS: Surgical changes and devices: None. Lungs and pleura: Lungs are clear. No pleural effusions or pneumothorax. Mediastinum: Mediastinal contours are normal. Heart size is normal. Bones and chest wall: No suspicious bony abnormalities. Soft tissues appear unremarkable. IMPRESSION: Normal for age, source of current chest pain symptoms is not seen. Dictated by: Hal Delgado M.D. on 08/21/2019 at 13:22 Approved by: Hal Delgado M.D. on 08/21/2019 at 13:22
[2019-08-21 12:05] LABS: Add Manual Diff / Slide Review NO; Basophils Absolute Auto 100 /uL (0-100); Basophils Percent Auto 1.2 % (0-2); Eosinophils Absolute Auto 200 /uL (0-450); Eosinophils Percent Auto 2.3 % (2-4); Hematocrit 43.1 % (36-46); Hemoglobin 14.7 g/dL (12.0-16.0); Lymphocytes Absolute Auto 2100 /uL (1100-4500); Lymphocytes Percent Auto 27.6 % (25-40); Mean Corpuscular HGB Conc 34.1 % (30-36); Mean Corpuscular Hemoglobin 31.5 PG (26-34); Mean Corpuscular Volume 92.2 fL (80-100); Monocytes Absolute Auto 700 /uL (0-900); Monocytes Percent Auto 9.8 % (3-14); Neutrophils Absolute Auto 4500 /uL (1500-7000); Neutrophils Percent Auto 59.1 % (50-75); Platelet Count 286 X10^3/uL (150-400); Red Blood Cell Count 4.68 X10^6/uL (4.0-5.2); Red Cell Distribution Width 13.5 % (11.6-14.8); White Blood Cell Count 7.6 X10^3/uL (4.5-11.0)
[2019-08-21 12:12] VITALS: BP 109/67; PULSE 62; RESP 18; O2SAT 100
[2019-08-21 12:16] LABS: Alanine Aminotransferase 19 IU/L (<35); Albumin 4.8 g/dL (3.5-5.0); Albumin Globulin Ratio 1.6 (1.0-2.8); Alkaline Phosphatase 54 U/L (38-126); Aspartate Aminotransferase 23 IU/L (14-36); Bilirubin Total 0.5 mg/dL (0.2-1.3); Blood Urea Nitrogen 16 mg/dL (7-17); Calcium 9.2 mg/dL (8.4-10.2); Carbon Dioxide 25 mmol/L (22-32); Chloride 107 mmol/L (98-107); Creatine Kinase 117 U/L (30-135); Estimated Glomerular Filt Rate > 60.0 mL/min (>60); Glucose 72 mg/dL (70-100); HEMOLYSIS 45 (0-50); Potassium 3.5 mmol/L (3.4-5.1); Sodium 141 mmol/L (137-145); Total Protein 7.8 g/dL (6.3-8.2)
[2019-08-21 12:19] LABS: INR 0.9 (0.9-1.3); Prothrombin Time 10.6 SECONDS (10.1-12.7)
[2019-08-21 12:19] LABS: RBC Urine None Seen (0-5/HPF)
[2019-08-21 12:22] LABS: PTT Partial Thromboplastin Tim 32 SECONDS (26.4-36.2)
[2019-08-21 12:26] LABS: Bacteria Urine Moderate (10-30); Culture Indicated Urine Cult Not Indicated; Squamous Epithelial Cell Urine 5-10 /HPF (0-5/HPF); WBC Urine 5-10/HPF (0-5/HPF)
[2019-08-21 12:27] LABS: Troponin I < 0.012 ng/mL (0.01-0.034)
[2019-08-21 12:38] LABS: CKMB % Relative Index 1.5 % (1.5-5.0); Creatine Kinase MB 1.79 ng/mL (<2.37)
[2019-08-21 13:09] LABS: Influenza A - CEPHEID Flu A NEGATIVE (NEGATIVE); Influenza B - CEPHEID Flu B NEGATIVE (NEGATIVE)
[2019-08-21 13:10] VITALS: BP 117/70; PULSE 80; RESP 16; O2SAT 95
--- NOTE | 2019-08-21 13:29 | ED_ITS ---
HPI - Chest Pain <KALPANA Lynne - Last Filed: 08/21/19 21:09> General Chief Complaint: Chest Pain Stated Complaint: spitting blood,unsure where it came from Time Seen by Provider: 08/21/19 11:22 Source: patient Mode of arrival: Ambulatory Limitations: no limitations and other History of Present Illness HPI narrative: The patient is a 33-year-old female nonsmoker with history of sei zures and deafness who presents with a chief complaint of spitting up blood once today. She states that she has had chest pain since yesterday, started on and off but has recently been more constant. She states that she has had episodes of this chest pain over the years and she has been seen by multiple providers and multiple emergency department and told that has been anxiety. She denies any fevers nausea vomiting or diarrhea. She does complain of a slight decreased appetite. She states she did not cough up the blood, but rather spit after eating. She denies any trauma to her mouth. She denies any wheezing. She states she has ear pressure. She denies complains of general lightheadedness. Related Data Home Medications Medication Instructions Recorded Confirmed trazodone #0 08/01/17 03/19/19 levetiracetam 500 mg PO BID 03/27/19 03/27/19 topiramate 03/27/19 topiramate 03/27/19 Previous Rx's Medication Instructions Recorded lamotrigine [Lamictal] 100 mg PO BID #60 tab 09/23/16 meclizine 25 mg PO BID-TID PRN #10 tab 04/02/19 ondansetron 4 mg PO Q6-8H PRN #7 tab 04/02/19 ofloxacin 10 drop EAR-LEFT DAILY 7 Days #10 08/21/19 ml Allergies Allergy/AdvReac Type Severity Reaction Status Date / Time latex Allergy Mild ITCHING Verified 08/21/19 10:51 morphine Allergy Mild Verified 08/21/19 10:51 acetaminophen [From Fioricet] AdvReac Verified 08/21/19 10:51 butalbital [From Fioricet] AdvReac Verified 08/21/19 10:51 caffeine [From Fioricet] AdvReac Verified 08/21/19 10:51 Review of Systems <KALPANA Lynne - Last Filed: 08/21/19 21:09> Review of Systems Narrative: GENERAL: See HPI HEENT: See HPI RESPIRATORY: Denies dyspnea, cough, wheezing, hemoptysis, sputum. CARDIOVASCULAR: See HPI GASTROINTESTINAL: See HPI : Denies dysuria, frequency, incontinence, hematuria, urinary retention. MUSCULOSKELETAL: denies weakness, joint pain, or bony pain SKIN: Denies rash, skin lesions, or other NEUROLOGIC: Denies weakness, headache, numbness, change in speech, confusion, seizures, incoordination. PSYCHIATRIC: No concerning psychosocial issues. 12 point review of systems is negative except for those stated above Patient History <KALPANA Lynne - Last Filed: 08/21/19 21:09> Surgical History Status post appendectomy Status post loop electrosurgical excision procedure (LEEP) of cervix Social History Smoking Status: Never smoker Smoking Status: Never smoker alcohol intake frequency: 0-2 drinks per day Substance Use Type: marijuana Exam <KALPANA Lynne - Last Filed: 08/21/19 21:09> Narrative Exam Narrative: GENERAL: This is a well-nourished, well-developed patient, in no acute distress HEAD: Atraumatic. Normocephalic. No temporal or scalp tenderness. EYES: Pupils equal round and reactive. Extraocular motions intact. No scleral icterus. No injection or drainage. ENT: Nose without bleeding, purulent drainage or septal hematoma. Throat without erythema, tonsillar hypertrophy or exudate. Uvula midline. Airway patent. Bilateral TMs pearly gordon. Right canal within normal limits, left canal slightly erythematous and swollen. Painful to left ear pinna retraction NECK: Trachea midline. No JVD or lymphadenopathy. Supple, nontender, no meningeal signs. CARDIOVASCULAR: Regular rate and rhythm RESPIRATORY: Clear to auscultation. Breath sounds equal bilaterally. No wheezes, rales, or rhonchi. No cough. No increased respiratory effort. No accessory muscle use. GASTROINTESTINAL: Abdomen soft, non-tender, nondistended. No hepato- splenomegaly, or palpable masses. No guarding. EXTREMITIES: No clubbing, cyanosis, or edema. No joint tenderness, effusion, or edema noted. BACK: Nontender without deformity or crepitance. No flank tenderness. NEURO: AOx3. SKIN: No rash or erythema on visible skin Initial Vital Signs Initial Vital Signs: Vital Signs Temperature 98.4 F 08/21/19 10:30 Pulse Rate 83 08/21/19 10:30 Respiratory Rate 18 08/21/19 10:30 Blood Pressure 153/115 H 08/21/19 10:30 Pulse Oximetry 98 08/21/19 10:30 <Lesley Petty DO - Last Filed: 08/24/19 07:49> Initial Vital Signs Initial Vital Signs: Vital Signs Temperature 98.4 F 08/21/19 10:30 Pulse Rate 83 08/21/19 10:30 Respiratory Rate 18 08/21/19 10:30 Blood Pressure 153/115 H 08/21/19 10:30 Pulse Oximetry 98 08/21/19 10:30 Course <KALPANA Lynne - Last Filed: 08/21/19 21:09> Orders Ordered: ED Orders 08/21/19 12:10 Urine Microscopic Stat 08/21/19 12:26 Influenza A & B (PCR) Stat Vital Signs Vital signs: Vital Signs - 8 hr 08/21/19 13:10 08/21/19 14:34 Pulse Rate 80 62 Respiratory Rate 16 18 Blood Pressure [Left Arm] 117/70 108/67 Pulse Oximetry 95 100 <Lesley Petty DO - Last Filed: 08/24/19 07:49> Orders Ordered: ED Orders 08/21/19 12:10 Urine Microscopic Stat 08/21/19 12:26 Influenza A & B (PCR) Stat Vital Signs Vital signs: Vital Signs - 8 hr 08/21/19 13:10 08/21/19 14:34 Pulse Rate 80 62 Respiratory Rate 16 18 Blood Pressure [Left Arm] 117/70 108/67 Pulse Oximetry 95 100 MDM - Chest Pain <KALPANA Lynne Last Filed: 08/21/19 21:09> Lab Data Result diagrams: 08/21/19 11:50 08/21/19 11:50 Labs: Lab Results 08/21/19 08/21/19 08/21/19 Range/Units 11:50 11:50 11:50 WBC 7.6 (4.5-11.0) X10^3/uL RBC 4.68 (4.0-5.2) X10^6/uL Hgb 14.7 (12.0-16.0) g/dL Hct 43.1 (36-46) % MCV 92.2 (80-100) fL MCH 31.5 (26-34) PG MCHC 34.1 (30-36) % RDW 13.5 (11.6-14.8) % Plt Count 286 (150-400) X10^3/uL Neut % (Auto) 59.1 (50-75) % Lymph % (Auto) 27.6 (25-40) % Faulkner % (Auto) 9.8 (3-14) % Eos % (Auto) 2.3 (2-4) % Baso % (Auto) 1.2 (0-2) % Neut # (Auto) 4500 (7767-9311) /uL Lymph # (Auto) 2100 (3540-9118) /uL Faulkner # (Auto) 700 (0-900) /uL Eos # (Auto) 200 (0-450) /uL Baso # (Auto) 100 (0-100) /uL PT 10.6 (10.1-12.7) SECONDS INR 0.9 (0.9-1.3) APTT 32 (26.4-36.2) SECONDS Sodium 141 (137-145) mmol/L Potassium 3.5 (3.4-5.1) mmol/L Chloride 107 (98-107) mmol/L Carbon Dioxide 25 (22-32) mmol/L BUN 16 (7-17) mg/dL Creatinine 1.00 (0.52-1.04) mg/dL Estimated GFR > 60.0 (>60) mL/min BUN/Creatinine Ratio 16.0 (6-22) Glucose 72 (70-100) mg/dL Calcium 9.2 (8.4-10.2) mg/dL Total Bilirubin 0.5 (0.2-1.3) mg/dL AST 23 (14-36) IU/L ALT 19 (<35) IU/L Alkaline Phosphatase 54 (38-126) U/L Total Creatine Kinase 117 (30-135) U/L CK-MB (CK-2) 1.79 (<2.37) ng/mL CK-MB (CK-2) Rel Index 1.5 (1.5-5.0) % Troponin I < 0.012 (0.01-0.034) ng/mL Total Protein 7.8 (6.3-8.2) g/dL Albumin 4.8 (3.5-5.0) g/dL Globulin 3.0 (1.7-4.1) g/dL Albumin/Globulin Ratio 1.6 (1.0-2.8) Urine RBC (0-5/HPF) Urine WBC (0-5/HPF) Ur Squamous Epith Cells (0-5/HPF) Urine Bacteria (None) Ur Culture Indicated? Influenza A (RT-PCR) (NEGATIVE) Influenza B (RT-PCR) (NEGATIVE) 08/21/19 08/21/19 Range/Units 12:10 12:26 WBC (4.5-11.0) X10^3/uL RBC (4.0-5.2) X10^6/uL Hgb (12.0-16.0) g/dL Hct (36-46) % MCV (80-100) fL MCH (26-34) PG MCHC (30-36) % RDW (11.6-14.8) % Plt Count (150-400) X10^3/uL Neut % (Auto) (50-75) % Lymph % (Auto) (25-40) % Faulkner % (Auto) (3-14) % Eos % (Auto) (2-4) % Baso % (Auto) (0-2) % Neut # (Auto) (9449-0551) /uL Lymph # (Auto) (8988-2611) /uL Faulkner # (Auto) (0-900) /uL Eos # (Auto) (0-450) /uL Baso # (Auto) (0-100) /uL PT (10.1-12.7) SECONDS INR (0.9-1.3) APTT (26.4-36.2) SECONDS Sodium (137-145) mmol/L Potassium (3.4-5.1) mmol/L Chloride (98-107) mmol/L Carbon Dioxide (22-32) mmol/L BUN (7-17) mg/dL Creatinine (0.52-1.04) mg/dL Estimated GFR (>60) mL/min BUN/Creatinine Ratio (6-22) Glucose (70-100) mg/dL Calcium (8.4-10.2) mg/dL Total Bilirubin (0.2-1.3) mg/dL AST (14-36) IU/L ALT (<35) IU/L Alkaline Phosphatase (38-126) U/L Total Creatine Kinase (30-135) U/L CK-MB (CK-2) (<2.37) ng/mL CK-MB (CK-2) Rel Index (1.5-5.0) % Troponin I (0.01-0.034) ng/mL Total Protein (6.3-8.2) g/dL Albumin (3.5-5.0) g/dL Globulin (1.7-4.1) g/dL Albumin/Globulin Ratio (1.0-2.8) Urine RBC None seen (0-5/HPF) Urine WBC 5-10/hpf H (0-5/HPF) Ur Squamous Epith Cells 5-10 /hpf H (0-5/HPF) Urine Bacteria Moderate (10-30) H (None) Ur Culture Indicated? Cult not indicated Influenza A (RT-PCR) Flu a negative (NEGATIVE) Influenza B (RT-PCR) Flu b negative (NEGATIVE) Point of Care Testing Test Results Negative Urine Dip Bedside Urine Glucose Negative Bedside Urine Bilirubin + 1 Bedside Urine Ketone - Negative Urine Specific [place] 1.030 Bedside Urine Occult Blood - Negative Bedside Urine pH 6.0 Bedside Urine Protein +/- 15 Bedside Urine Urobilinogen - Negative Bedside Urine Nitrite - Negative Bedside Urine Leukocytes + 70 Esterase Imaging Data Chest x-ray: Radiologist's Impression: [facility] [place] [id number] XRay Report Signed Patient: Eli Stevens [facility]#: [id number] : 1985Acct:[id number] Age/Sex: 33 / FDate of Service: 08/21/19 Loc: ED Accession Number: [id number] Procedure: XR chest 2V Ordering Provider: Kelly Chapa PROCEDURE: XR CHEST 2V INDICATIONS: chest pain TECHNIQUE: 2 views of the chest were acquired. COMPARISON: [facility], LANDON, XR CHEST 1V, 03/27/2019, 9:40. [facility], CR, CHEST 1 VIEW, 05/18/2014, 7:42. FINDINGS: Surgical changes and devices: None. Lungs and pleura: Lungs are clear. No pleural effusions or pneumothorax. Mediastinum: Mediastinal contours are normal. Heart size is normal. Bones and chest wall: No suspicious bony abnormalities. Soft tissues appear unremarkable. IMPRESSION: Normal for age, source of current chest pain symptoms is not seen. Dictated by: Hal Delgado M.D. on 08/21/2019 at 13:22 Approved by: Hal Delgado M.D. on 08/21/2019 at 13:22 [facility] Narrative Medical decision making narrative: The patient is a 33-year-old female who presents with a chief complaint of spitting up blood. Her overall exam has no acute abnormalities other than otitis externa of her left side. Her chest x-ray shows no acute findings, her troponin is negative. I discussed at length the importance of following up with primary care provider. She has not been spitting or coughing up blood since her arrival to the emergency department. She has no signs of GI bleeding, no blood in her oropharynx, and is hemodynamically stable. I discussed at length return precautions the emergency department including concern of heart attack, concern of stroke etcetera. Patient has no questions or concerns upon discharge and states understanding of return precautions as well as follow-up care. <Lesley Petty, - Last Filed: 08/24/19 07:49> Lab Data Labs: Lab Results 08/21/19 08/21/19 08/21/19 Range/Units 11:50 11:50 11:50 WBC 7.6 (4.5-11.0) X10^3/uL RBC 4.68 (4.0-5.2) X10^6/uL Hgb 14.7 (12.0-16.0) g/dL Hct 43.1 (36-46) % MCV 92.2 (80-100) fL MCH 31.5 (26-34) PG MCHC 34.1 (30-36) % RDW 13.5 (11.6-14.8) % Plt Count 286 (150-400) X10^3/uL Neut % (Auto) 59.1 (50-75) % Lymph % (Auto) 27.6 (25-40) % Faulkner % (Auto) 9.8 (3-14) % Eos % (Auto) 2.3 (2-4) % Baso % (Auto) 1.2 (0-2) % Neut # (Auto) 4500 (3283-5853) /uL Lymph # (Auto) 2100 (7292-3439) /uL Faulkner # (Auto) 700 (0-900) /uL Eos # (Auto) 200 (0-450) /uL Baso # (Auto) 100 (0-100) /uL PT 10.6 (10.1-12.7) SECONDS INR 0.9 (0.9-1.3) APTT 32 (26.4-36.2) SECONDS Sodium 141 (137-145) mmol/L Potassium 3.5 (3.4-5.1) mmol/L Chloride 107 (98-107) mmol/L Carbon Dioxide 25 (22-32) mmol/L BUN 16 (7-17) mg/dL Creatinine 1.00 (0.52-1.04) mg/dL Estimated GFR > 60.0 (>60) mL/min BUN/Creatinine Ratio 16.0 (6-22) Glucose 72 (70-100) mg/dL Calcium 9.2 (8.4-10.2) mg/dL Total Bilirubin 0.5 (0.2-1.3) mg/dL AST 23 (14-36) IU/L ALT 19 (<35) IU/L Alkaline Phosphatase 54 (38-126) U/L Total Creatine Kinase 117 (30-135) U/L CK-MB (CK-2) 1.79 (<2.37) ng/mL CK-MB (CK-2) Rel Index 1.5 (1.5-5.0) % Troponin I < 0.012 (0.01-0.034) ng/mL Total Protein 7.8 (6.3-8.2) g/dL Albumin 4.8 (3.5-5.0) g/dL Globulin 3.0 (1.7-4.1) g/dL Albumin/Globulin Ratio 1.6 (1.0-2.8) Urine RBC (0-5/HPF) Urine WBC (0-5/HPF) Ur Squamous Epith Cells (0-5/HPF) Urine Bacteria (None) Ur Culture Indicated? Influenza A (RT-PCR) (NEGATIVE) Influenza B (RT-PCR) (NEGATIVE) 08/21/19 08/21/19 Range/Units 12:10 12:26 WBC (4.5-11.0) X10^3/uL RBC (4.0-5.2) X10^6/uL Hgb (12.0-16.0) g/dL Hct (36-46) % MCV (80-100) fL MCH (26-34) PG MCHC (30-36) % RDW (11.6-14.8) % Plt Count (150-400) X10^3/uL Neut % (Auto) (50-75) % Lymph % (Auto) (25-40) % Faulkner % (Auto) (3-14) % Eos % (Auto) (2-4) % Baso % (Auto) (0-2) % Neut # (Auto) (0451-7532) /uL Lymph # (Auto) (4503-0889) /uL Faulkner # (Auto) (0-900) /uL Eos # (Auto) (0-450) /uL Baso # (Auto) (0-100) /uL PT (10.1-12.7) SECONDS INR (0.9-1.3) APTT (26.4-36.2) SECONDS Sodium (137-145) mmol/L Potassium (3.4-5.1) mmol/L Chloride (98-107) mmol/L Carbon Dioxide (22-32) mmol/L BUN (7-17) mg/dL Creatinine (0.52-1.04) mg/dL Estimated GFR (>60) mL/min BUN/Creatinine Ratio (6-22) Glucose (70-100) mg/dL Calcium (8.4-10.2) mg/dL Total Bilirubin (0.2-1.3) mg/dL AST (14-36) IU/L ALT (<35) IU/L Alkaline Phosphatase (38-126) U/L Total Creatine Kinase (30-135) U/L CK-MB (CK-2) (<2.37) ng/mL CK-MB (CK-2) Rel Index (1.5-5.0) % Troponin I (0.01-0.034) ng/mL Total Protein (6.3-8.2) g/dL Albumin (3.5-5.0) g/dL Globulin (1.7-4.1) g/dL Albumin/Globulin Ratio (1.0-2.8) Urine RBC None seen (0-5/HPF) Urine WBC 5-10/hpf H (0-5/HPF) Ur Squamous Epith Cells 5-10 /hpf H (0-5/HPF) Urine Bacteria Moderate (10-30) H (None) Ur Culture Indicated? Cult not indicated Influenza A (RT-PCR) Flu a negative (NEGATIVE) Influenza B (RT-PCR) Flu b negative (NEGATIVE) Point of Care Testing Test Results Negative Urine Dip Bedside Urine Glucose Negative Bedside Urine Bilirubin + 1 Bedside Urine Ketone - Negative Urine Specific [place] 1.030 Bedside Urine Occult Blood - Negative Bedside Urine pH 6.0 Bedside Urine Protein +/- 15 Bedside Urine Urobilinogen - Negative Bedside Urine Nitrite - Negative Bedside Urine Leukocytes + 70 Esterase Discharge Plan Departure Patient Disposition: Home Clinical Impression: Chest pain Qualifiers: Chest pain type: unspecified Qualified Code(s): R07.9 - Chest pain, unspecified Otitis externa Qualifiers: Otitis externa type: unspecified type Chronicity: acute Laterality: left Qualified Code(s): H60.502 - Unspecified acute noninfective otitis externa, left ear Discharge Date/Time: 08/21/19 14:47 Instructions: DI for Otitis Externa, DI for Atypical Chest Pain Activity Restrictions/Additional Instructions: Your chest x-ray, lab work and EKG are all very reassuring today. Please follow-up with primary care provider. I've given the contact information to the [facility] health resource conservationist. They can help you identify primary care provider. Your exam is concerning for an external ear infection on your left side. I've sent a prescription of antibiotic drops to [facility]. Please rest and push fluids. Please come back to emergency department for any acute concerns Prescriptions: New ofloxacin 0.3 % drops 10 drop EAR-LEFT DAILY 7 Days Qty: 10 RF: 0 No Action lamotrigine [Lamictal] 100 MG tablet 100 mg PO BID Qty: 60 RF: 3 trazodone 50 MG tablet Qty: 0 RF: 0 levetiracetam 500 mg tablet 500 mg PO BID RF: 0 topiramate 25 mg tablet RF: 0 topiramate 50 mg tablet RF: 0 ondansetron 4 mg tablet,disintegrating 4 mg PO Q6-8H PRN (Reason: nausea and vomiting) Qty: 7 RF: 0 meclizine 25 mg tablet,chewable 25 mg PO BID-TID PRN (Reason: dizziness or vertigo) Qty: 10 RF: 0 Referrals: [facility] [Outside]
[2019-08-21 14:34] VITALS: BP 108/67; PULSE 62; RESP 18; O2SAT 100
== END 2019-08-21 14:47 | disposition home or self-care (01) ==
PROVIDERS: Emergency Provider Nurse Practitioner Family
DX: R07.9 Chest pain, unspecified (principal); H60.502 Unspecified acute noninfective otitis externa, left ear
CPT/HCPCS: 36415; 71046; 80053; 81003; 81015; 81025; 82550; 82553; 84484; 85025; 85610; 85730; 87502; 93005; 93010; 99284; 99285

== ENCOUNTER 2019-09-11 12:42 | Emergency (ER) | payer OTHER, MEDICAID, SELFPAY ==
--- NOTE | 2019-09-11 12:47 | ED_ITS ---
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 She states that she has had typical vertigo today with miserable spinning sensation especially worse with bending over or standing up. She states that she has had nausea with this and feels warm. She has also noted stuffiness in her right ear along with some left earache. She also has headache, which she thinks is a migraine, she has light sensitivity as well. Apparently a co-worker or someone else sent a note with her that they had noted some nystagmus. She states that she has had nausea, but no vomiting. She states that she feels like headache is typical of her migraine. She has not taken any pain medicine for that. She did not try her nausea medicine that she has at home. She did take 1 dose of meclizine earlier and states not helping like usual so came in here. She states that she has some chest pressure which is typical of her chronic chest pressure. No new shortness of breath. She denies possibility of , LMP 08/24. On systems review, she states that no other symptoms are new or change today. Related Data Home Medications Medication Instructions Recorded Confirmed trazodone #0 08/01/17 03/19/19 levetiracetam 500 mg PO BID 03/27/19 03/27/19 topiramate 03/27/19 topiramate 03/27/19 Previous Rx's Medication Instructions Recorded lamotrigine [Lamictal] 100 mg PO BID #60 tab 09/23/16 meclizine 25 mg PO BID-TID PRN #10 tab 04/02/19 ondansetron 4 mg PO Q6-8H PRN #7 tab 04/02/19 ofloxacin 10 drop EAR-LEFT DAILY 7 Days #10 08/21/19 ml Allergies Allergy/AdvReac Type Severity Reaction Status Date / Time latex Allergy Mild ITCHING Verified 09/11/19 13:03 morphine Allergy Mild Verified 09/11/19 13:03 acetaminophen [From Fioricet] AdvReac Verified 09/11/19 13:03 butalbital [From Fioricet] AdvReac Verified 09/11/19 13:03 caffeine [From Fioricet] AdvReac Verified 09/11/19 13:03 Review of Systems <Vanessa Carlson PA-C - Last Filed: 09/11/19 20:43> Review of Systems ROS Unobtainable: All systems reviewed & are unremarkable except as noted in HPI and below Patient History <Vanessa Carlson PA-C - Last Filed: 09/11/19 20:43> Medical History (Updated 09/11/19 @ 15:46 by Vanessa Carlson PA-C) Cephalgia (Chronic) Chest pain (Inactive) Chronic cystitis (Inactive 03/28/16) Fibromyalgia (Inactive 06/19/15) Seizure disorder (Inactive 03/28/16) Surgical History Status post appendectomy Status post loop electrosurgical excision procedure (LEEP) of cervix Social History Smoking Status: Never smoker Smoking Status: Never smoker alcohol intake frequency: 0-2 drinks per day Substance Use Type: marijuana Exam <Vanessa Carlson PA-C - Last Filed: 09/11/19 20:43> Narrative Exam Narrative: GENERAL APPEARANCE: Patient sitting comfortably, in no distress. HEENT: PERRL, EOMI, no clear nystagmus though patient has difficulty following instructions, normal TMs and oropharynx, no sinus TTP NECK: Supple, no masses LUNGS: Clear to auscultation bilaterally. HEART: Rate and rhythm regular without murmur, normal S1 and S2, no S3 or S4. NEUROLOGIC: Alert, gives appropriate history and answers to questions via interpreters, normal coordination, + Hallpike maneuver MUSCULOSKELETAL: Full Csp AROM without tenderness Initial Vital Signs Initial Vital Signs: Vital Signs Pulse Rate 81 09/11/19 13:03 Respiratory Rate 18 09/11/19 13:03 Blood Pressure 118/56 L 09/11/19 13:03 Pulse Oximetry 99 09/11/19 13:03 <Parminder Vallejo DO - Last Filed: 09/17/19 07:11> Initial Vital Signs Initial Vital Signs: Vital Signs Pulse Rate 81 09/11/19 13:03 Respiratory Rate 18 09/11/19 13:03 Blood Pressure 118/56 L 09/11/19 13:03 Pulse Oximetry 99 09/11/19 13:03 Course <Vanessa Carlson PA-C - Last Filed: 09/11/19 20:43> Course Additional Information: Patient was sleeping comfortably during her entire stay here. She is able to tolerate oral fluids and medications. When we woke her to assess her progress, she reported still having some headache, vertigo significantly improved. She felt that she would be able to rest comfortably in a quiet place at home, so was discharged with a friend to drive her home. She stated that she had meclizine and Zofran at home already. Advised return if any acutely worsening symptoms or new symptoms such as fever, and she was agreeable. All of this was reviewed via fuel verification technician. Advised follow-up with PCP tomorrow to assess progress and determine whether she could return to work on Monday. Orders Ordered: Discontinued Medications Ketorolac Tromethamine (Toradol) 60 mg IM NOW ONE Stop: 09/11/19 13:20 Last Admin: 09/11/19 13:26 Dose: 60 mg Documented by: MARCOS Meclizine HCl (Antivert) 50 mg PO NOW ONE Stop: 09/11/19 13:20 Last Admin: 09/11/19 14:05 Dose: 50 mg Documented by: MARCOS Ondansetron HCl (Zofran Odt) 4 mg SL NOW ONE Stop: 09/11/19 13:20 Last Admin: 09/11/19 13:26 Dose: 4 mg Documented by: MARCOS Vital Signs Vital signs: Vital Signs - 8 hr 09/11/19 13:03 09/11/19 15:47 09/11/19 15:49 Temperature 98.8 F 98.8 F Pulse Rate 81 57 L 57 L Respiratory Rate 18 18 18 Blood Pressure 118/56 L 100/57 L Blood Pressure [Left Arm] 100/57 L Pulse Oximetry 99 99 99 <Parminder Vallejo DO - Last Filed: 09/17/19 07:11> Orders Ordered: Discontinued Medications Ketorolac Tromethamine (Toradol) 60 mg IM NOW ONE Stop: 09/11/19 13:20 Last Admin: 09/11/19 13:26 Dose: 60 mg Documented by: MARCOS Meclizine HCl (Antivert) 50 mg PO NOW ONE Stop: 09/11/19 13:20 Last Admin: 09/11/19 14:05 Dose: 50 mg Documented by: MARCOS Ondansetron HCl (Zofran Odt) 4 mg SL NOW ONE Stop: 09/11/19 13:20 Last Admin: 09/11/19 13:26 Dose: 4 mg Documented by: MARCOS Vital Signs Vital signs: Vital Signs - 8 hr 09/11/19 13:03 09/11/19 15:47 09/11/19 15:49 Temperature 98.8 F 98.8 F Pulse Rate 81 57 L 57 L Respiratory Rate 18 18 18 Blood Pressure 118/56 L 100/57 L Blood Pressure [Left Arm] 100/57 L Pulse Oximetry 99 99 99 Discharge Plan Departure Patient Disposition: Home Clinical Impression: Vertigo Migraine Qualifiers: Migraine type: unspecified Status migrainosus presence: without status migrainosus Intractability: not intractable Qualified Code(s): G43.909 - Migraine, unspecified, not intractable, without status migrainosus Discharge Date/Time: 09/11/19 16:25 Instructions: DI for Migraine, DI for Benign Paroxysmal Positional Vertigo Activity Restrictions/Additional Instructions: Please rest at home in a dark, quiet place as we talked about. No work or screen time today. You can use your usual medicines as needed for vertigo, headache and nausea. As we discussed, you should return if you have any acutely worsening symptoms, or new symptoms such as fever or uncontrolled vomiting. Otherwise, please follow-up with your PCP tomorrow to assess your progress and determine whether you can return to work Monday or whether you need additional treatment. Please be sure to sip fluids and eat small amounts of bland food every couple of hours to help with your nausea Prescriptions: No Action lamotrigine [Lamictal] 100 MG tablet 100 mg PO BID Qty: 60 RF: 3 trazodone 50 MG tablet Qty: 0 RF: 0 levetiracetam 500 mg tablet 500 mg PO BID RF: 0 topiramate 25 mg tablet RF: 0 topiramate 50 mg tablet RF: 0 ondansetron 4 mg tablet,disintegrating 4 mg PO Q6-8H PRN (Reason: nausea and vomiting) Qty: 7 RF: 0 meclizine 25 mg tablet,chewable 25 mg PO BID-TID PRN (Reason: dizziness or vertigo) Qty: 10 RF: 0 ofloxacin 0.3 % drops 10 drop EAR-LEFT DAILY 7 Days Qty: 10 RF: 0 Referrals: [facility] [Other] Stand Alone Forms: Work Release Note <Parminder Vallejo, DO - Last Filed: 09/17/19 07:11> Sign Out Provider Sign Out Attestation: Dr Vallejo Co-Sign Statement: I was available for consultation during this patient's emergency department visit. This chart is signed by myself for administrative purposes only. I did not have direct contact with this patient during this visit. They were seen independently by the APC.
[2019-09-11 13:03] VITALS: BP 118/56; PULSE 81; RESP 18; O2SAT 99; BMI 23.6
[2019-09-11] MEDS: ONDANSETRON 4 MG ODT SL (13:26)
[2019-09-11] MEDS: KETOROLAC 60 MG/2 ML VIAL IM (13:26)
[2019-09-11] MEDS: MECLIZINE HCL 12.5 MG TABLET 50 MG PO (14:05)
[2019-09-11 15:47] VITALS: BP 100/57; PULSE 57; RESP 18; TEMP 37.1; O2SAT 99
[2019-09-11 15:49] VITALS: BP 100/57; PULSE 57; RESP 18; TEMP 37.1; O2SAT 99
--- NOTE | 2019-09-11 15:49 | PC.NURSE ---
Education Manager numbers are [phone] and [phone]
== END 2019-09-11 16:25 | disposition home or self-care (01) ==
PROVIDERS: Emergency Provider Internal Medicine
DX: G43.909 Migraine, unspecified, not intractable, without status migrainosus (principal); R42 Dizziness and giddiness
CPT/HCPCS: 96372; 99283; J1885

== ENCOUNTER 2019-12-31 14:38 | Emergency (ER) | payer OTHER, SELFPAY ==
[2019-12-31 14:40] VITALS: BP 120/70; PULSE 80; RESP 16; TEMP 36.8; O2SAT 98
--- NOTE | 2019-12-31 14:51 | ED_ITS ---
HPI - Extremity Injury (Upper) <Marie Plata PA-C - Last Filed: 12/31/19 22:29> General Chief Complaint: Extremity Injury, Upper Stated Complaint: left hand injury at work Time Seen by Provider: 12/31/19 14:41 Source: patient Mode of arrival: Ambulatory Limitations: language barrier (deaf, uses ASL, electronic clerk entry level was used) and physical limitation History of Present Illness HPI narrative: This is a 34-year-old woman with a history of seizures, deafness, headaches who presents to the emergency department from work with a complaint of left hand pain sustained just before arrival when she was tucking a fitted sheet under a mattress and it was too tight to fit the bed and her hand got stuck briefly and was over strained/squished in an awkward position. She says she is having 7/10 aching pain in her hand and wrist, she has some numbness and tingling in her fingertips going down her fingers towards her palm. She states that she has an allergy to latex morphine and Fioricet and takes seizure medication only. She reports she is not sure if this needs to be an L and I claim but that her boss told her that she should come here to be evaluated and he gave her some paperwork. 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 This is an isolated complaint and she has no other complaints or concerns today. complaint: injury to: left Onset (ago): minute(s) (45) Other Extremity Injury: Left: hand and wrist Other injuries: none Handedness: right (Patient is right-handed but she is deaf, speask ASL, so she does need to use both hands.) Place: work Severity: moderate Severity scale (1-10): 7 Relieving factors: other (None tried) Exacerbating factors: movement of extremity Context: crush (Tugging and crush injury) Associated symptoms: numbness (Slight numbness in her fingers of the left hand radiating down into her hand from the tip.) Treatments prior to arrival: other (None) Related Data Home Medications Medication Instructions Recorded Confirmed trazodone #0 08/01/17 03/19/19 levetiracetam 500 mg PO BID 03/27/19 03/27/19 topiramate 03/27/19 topiramate 03/27/19 Previous Rx's Medication Instructions Recorded lamotrigine [Lamictal] 100 mg PO BID #60 tab 09/23/16 meclizine 25 mg PO BID-TID PRN #10 tab 04/02/19 ondansetron 4 mg PO Q6-8H PRN #7 tab 04/02/19 Allergies Allergy/AdvReac Type Severity Reaction Status Date / Time latex Allergy Mild ITCHING Verified 12/31/19 14:48 morphine Allergy Mild Verified 12/31/19 14:48 butalbital [From Fioricet] AdvReac Unknown Verified 12/31/19 14:48 Review of Systems <Marie Plata PA-C - Last Filed: 12/31/19 22:29> Review of Systems Narrative: GENERAL: Denies chills, fatigue, malaise, fever, sweats. MUSCULOSKELETAL: endorses weakness in her left hand, and pain with movement, denies joint pain, or bony pain SKIN: Denies rash, skin lesions, or other NEUROLOGIC: Denies generalized weakness, headache, endorses slight numbness in left fingers, change in speech, confusion, seizures, incoordination. PSYCHIATRIC: No concerning psychosocial issues. 12 point review of systems is negative except for those stated above Patient History <Marie Plata PA-C - Last Filed: 12/31/19 22:29> Medical History (Updated 12/31/19 @ 15:56 by Marie Plata PA-C) Cephalgia (Chronic) Chest pain (Inactive) Chronic cystitis (Inactive 03/28/16) Fibromyalgia (Inactive 06/19/15) Seizure disorder (Inactive 03/28/16) Surgical History Status post appendectomy Status post loop electrosurgical excision procedure (LEEP) of cervix Social History Smoking Status: Never smoker Smoking Status: Never smoker alcohol intake frequency: 0-2 drinks per day Substance Use Type: does not use Exam <Marie Plata PA-C - Last Filed: 12/31/19 22:29> Narrative Exam Narrative: GENERAL: 34 year old patient appears stated age. Well-nourished, well-developed patient, in moderate distress, initially writing what happened on white board then using ASL with video clerk entry level. HEAD: Atraumatic. Normocephalic. EYES: Pupils equal round and reactive. Extraocular motions intact. No scleral icterus. No injection or drainage. ENT: Nose without bleeding, purulent drainage. Airway patent. NECK: Trachea midline. Non tender CARDIOVASCULAR: Regular rate and rhythm without murmurs, gallops, or rubs. RESPIRATORY: Clear to auscultation. Breath sounds equal bilaterally. No wheezes, rales, or rhonchi. EXTREMITIES: There is mild tenderness over the distal radius, there is tenderness over the carpals and 1st through 3rd digits the patient has passive range of motion intact, she has pain with active range of motion specifically increasing pain that goes up her arm towards her elbow when she flexes her fingers to make a fist or extend her fingers out. She has normal range of motion at the elbow, wrist and of the fingers. No swelling, edema or joint tenderness. NEURO: AOx3. SKIN: No rash or erythema of visible areas Initial Vital Signs Initial Vital Signs: Vital Signs Temperature 98.2 F 12/31/19 14:40 Pulse Rate 80 12/31/19 14:40 Respiratory Rate 16 12/31/19 14:40 Blood Pressure 120/70 12/31/19 14:40 Pulse Oximetry 98 12/31/19 14:40 <Master Barros DO - Last Filed: 01/03/20 20:41> Initial Vital Signs Initial Vital Signs: Vital Signs Temperature 98.2 F 12/31/19 14:40 Pulse Rate 80 12/31/19 14:40 Respiratory Rate 16 12/31/19 14:40 Blood Pressure 120/70 12/31/19 14:40 Pulse Oximetry 98 12/31/19 14:40 Course <Marie Plata PA-C - Last Filed: 12/31/19 22:29> Orders Ordered: Discontinued Medications Acetaminophen (Tylenol) 650 mg PO NOW ONE Stop: 12/31/19 14:52 Last Admin: 12/31/19 14:58 Dose: 650 mg Documented by: FREDY Ibuprofen (Advil) 400 mg PO NOW ONE Stop: 12/31/19 14:52 Last Admin: 12/31/19 14:58 Dose: 400 mg Documented by: FREDY Vital Signs Vital signs: Vital Signs - 8 hr 12/31/19 14:40 12/31/19 16:27 Temperature 98.2 F Pulse Rate 80 81 Respiratory Rate 16 Blood Pressure 120/70 107/62 Pulse Oximetry 98 99 <Master Barros DO - Last Filed: 01/03/20 20:41> Orders Ordered: Discontinued Medications Acetaminophen (Tylenol) 650 mg PO NOW ONE Stop: 12/31/19 14:52 Last Admin: 12/31/19 14:58 Dose: 650 mg Documented by: FREDY Ibuprofen (Advil) 400 mg PO NOW ONE Stop: 12/31/19 14:52 Last Admin: 12/31/19 14:58 Dose: 400 mg Documented by: KBROTEM Vital Signs Vital signs: Vital Signs - 8 hr 12/31/19 14:40 12/31/19 16:27 Temperature 98.2 F Pulse Rate 80 81 Respiratory Rate 16 Blood Pressure 120/70 107/62 Pulse Oximetry 98 99 MDM - Extremity Injury (Upper) <Marie Plata PA-C - Last Filed: 12/31/19 22:29> Differential Diagnosis Differential diagnosis: Likely sprain and strain of wrist Medical Records Attestation: I reviewed the patient's medical records. Imaging Data Extremity x-ray #1: Attestation: I personally reviewed and interpreted this imaging study as follows: Radiologist's Impression: [address] [address] XRay Report Signed Patient: Eli Stevens [facility]#: [id number] : 1985Acct:[id number] Age/Sex: 34 / FDate of Service: 12/31/19 Loc: ED Accession Number: [id number] Procedure: XR hand LT min 3V Ordering Provider: Marie Plata P.A-C PROCEDURE: XR HAND LT MIN 3V INDICATIONS: hand pain/injury TECHNIQUE: 3 views of the hand(s) acquired. COMPARISON: [facility] , HAND 3V RIGHT, 01/01/2013, 18:19. FINDINGS: Bones: No fractures or dislocations. Carpal bones are normally aligned. No suspicious bony lesions. Soft tissues: No suspicious soft tissue calcifications. IMPRESSION: No visualized acute fracture or dislocation. However, if clinical concern and/or pain persist, short interval imaging followup in 7-10 days is recommended, as occult injury cannot be definitively excluded. Dictated by: Corinna Cabrera M.D. on 12/31/2019 at 15:20 Approved by: Corinna Cabrera M.D. on 12/31/2019 at 15:46 Extremity x-ray #2: Attestation: I personally reviewed and interpreted this imaging study as follows: Radiologist's Impression: [address] [address] XRay Report Signed Patient: Eli Stevens [facility]#: [id number] : 1985Acct:[id number] Age/Sex: 34 / FDate of Service: 12/31/19 Loc: ED Accession Number: [id number] Procedure: XR wrist LT min 3V Ordering Provider: Marie Plata P.A-C PROCEDURE: XR WRIST LT MIN 3V INDICATIONS: wrist pain/injury TECHNIQUE: 3 views of the wrist were acquired. COMPARISON: [facility], , XR HAND LT MIN 3V, 12/31/2019, 14:47. FINDINGS: Bones: No fractures or dislocations. No suspicious bony lesions. Scaphoid view: No visualized fracture. Soft tissues: No suspicious soft tissue calcifications. IMPRESSION: No visualized acute fracture or dislocation. However, if clinical concern and/or pain persist, short interval imaging followup in 7-10 days is recommended, as occult injury cannot be definitively excluded. Dictated by: Corinna Cabrera M.D. on 12/31/2019 at 15:46 Approved by: Corinna Cabrera M.D. on 12/31/2019 at 15:46 MDM Narrative Medical decision making narrative: This is a 34-year-old woman with a history of deafness, seizures, and headaches who presents to the emergency department with an isolated injury to her left hand sustained at work today. X-rays were unremarkable, exam was suggestive of strain/sprain. I do not suspect any neurologic damage, she was provided with a work note and L and I paperwork was filled out today in the emergency department. She was provided with instructions on following up with her L&I. She is provided with emergency return precautions, an Humza wrap and a sling as well as instructions for rest. All questions were answered. Discharge Plan Departure Patient Disposition: Home Clinical Impression: Sprain and strain of left hand, Sprain and strain of left wrist Discharge Date/Time: 12/31/19 16:27 Instructions: DI for Wrist Sprain, How To Perform RICE (Rest, Ice, Compress, Elevate) Activity Restrictions/Additional Instructions: Thank you for letting us to be part of your care in the emergency department today. There is no evidence of an emergent or life threatening illness at this time, but follow up with your doctor in 1-2 days is recommended nonetheless to continue to rule out serious underlying causes of your symptoms. Please call the office for an appointment. Please return to the Emergency Department for any worsening or persistent symptoms. Please take your medications as directed. There were no fractures, dislocations or other injuries noted on your x-rays, and I suspect that you have a sprain and strain of your hand in your wrist. Please follow the directions included for rest ice compression and elevation for the next 24-48 hours, as you are more likely to heal better if you take good care of your injury for the next few days. I recommend that you minimize the use of your wrist and hand for the next few days and pay attention to how your feeling, if you do have pain with use or increasing pain he should definitely minimize use of it. Please pay attention to how you are doing and if you have symptoms including increasing numbness or tingling, increasing pain, swelling in your hand wrist or arm, or any other symptoms of concern please do not hesitate to seek medical care or return to the emergency department. And that you wear the sling as we have provided as well as the Humza wrap for the next few days or as long as you are continuing to have pain. You can take Tylenol and ibuprofen as needed for pain with [id number] dosing. I have referred you to [facility] resources so that you can establish care with a primary care provider if you do not have one. Prescriptions: No Action lamotrigine [Lamictal] 100 MG tablet 100 mg PO BID Qty: 60 RF: 3 trazodone 50 MG tablet Qty: 0 RF: 0 levetiracetam 500 mg tablet 500 mg PO BID RF: 0 topiramate 25 mg tablet RF: 0 topiramate 50 mg tablet RF: 0 ondansetron 4 mg tablet,disintegrating 4 mg PO Q6-8H PRN (Reason: nausea and vomiting) Qty: 7 RF: 0 meclizine 25 mg tablet,chewable 25 mg PO BID-TID PRN (Reason: dizziness or vertigo) Qty: 10 RF: 0 Referrals: [facility] [Outside] Stand Alone Forms: Work Release Note <Master Barros DO - Last Filed: 01/03/20 20:41> Cosign ED Attending Cosignature Attestation: I was immediately available in the department for consultation. This documentation has been reviewed and I agree with assessment and plan. Supervised by Master Barros DO
--- NOTE | 2019-12-31 14:54 | PC.NURSE ---
Ipad used for hearing impaired
[2019-12-31] MEDS: ACETAMINOPHEN 325 MG TABLET 650 MG PO (14:58)
[2019-12-31] MEDS: IBUPROFEN 400 MG TABLET PO (14:58)
[2019-12-31 16:27] VITALS: BP 107/62; PULSE 81; O2SAT 99
== END 2019-12-31 16:27 | disposition home or self-care (01) ==
PROVIDERS: Emergency Provider Student in an Organized Health Care Education/Training Program
DX: S63.92XA Sprain of unspecified part of left wrist and hand, initial encounter (principal); S66.912A Strain of unspecified muscle, fascia and tendon at wrist and hand level, left hand, initial encounter; Y99.0 Civilian activity done for income or pay
CPT/HCPCS: 73110; 73130; 99283; 99284

== ENCOUNTER 2020-02-04 11:04 | Emergency (ER) | payer OTHER, MEDICAID, SELFPAY ==
[2020-02-04 11:13] VITALS: BP 108/71; PULSE 83; RESP 18; TEMP 36.4; O2SAT 100
--- NOTE | 2020-02-04 11:16 | DI.RAD.S_ITS ---
PROCEDURE: XR CHEST 1V INDICATIONS: chest pain TECHNIQUE: One view of the chest was acquired. COMPARISON: [facility], CR, XR CHEST 1V, 03/27/2019, 9:40. FINDINGS: Surgical changes and devices: None. Lungs and pleura: Lungs are clear. No pleural effusions or pneumothorax. Mediastinum: Mediastinal contours appear normal. Heart size is normal. Bones and chest wall: No suspicious bony lesions. Overlying soft tissues appear unremarkable. IMPRESSION: No acute cardiopulmonary disease process. Dictated by: Lilian Mcgee MD, PhD on 02/04/2020 at 11:41 Approved by: Lilian Mcgee MD, PhD on 02/04/2020 at 11:41
[2020-02-04 11:27] LABS: Add Manual Diff / Slide Review NO; Basophils Absolute Auto 100 /uL (0-100); Eosinophils Absolute Auto 200 /uL (0-450); Eosinophils Percent Auto 2.9 % (2-4); Hematocrit 40.1 % (36-46); Hemoglobin 13.3 g/dL (12.0-16.0); Lymphocytes Absolute Auto 2100 /uL (1100-4500); Lymphocytes Percent Auto 28.9 % (25-40); Mean Corpuscular HGB Conc 33.3 % (30-36); Mean Corpuscular Hemoglobin 30.7 PG (26-34); Mean Corpuscular Volume 92.2 fL (80-100); Monocytes Absolute Auto 800 /uL (0-900); Monocytes Percent Auto 10.4 % (3-14); Neutrophils Absolute Auto 4200 /uL (1500-7000); Neutrophils Percent Auto 56.8 % (50-75); Platelet Count 272 X10^3/uL (150-400); Red Blood Cell Count 4.35 X10^6/uL (4.0-5.2); Red Cell Distribution Width 13.5 % (11.6-14.8); White Blood Cell Count 7.3 X10^3/uL (4.5-11.0)
[2020-02-04 11:32] LABS: Prothrombin Time 11.5 SECONDS (10.1-12.7)
[2020-02-04 11:35] LABS: PTT Partial Thromboplastin Tim 34 SECONDS (26.4-36.2)
[2020-02-04 11:38] LABS: Alanine Aminotransferase 16 IU/L (<35); Albumin 4.5 g/dL (3.5-5.0); Albumin Globulin Ratio 1.7 (1.0-2.8); Alkaline Phosphatase 49 U/L (38-126); Aspartate Aminotransferase 21 IU/L (14-36); BUN Creatinine Ratio 18.1 (6-22); Bilirubin Total 0.3 mg/dL (0.2-1.3); Blood Urea Nitrogen 15 mg/dL (7-17); Calcium 9.9 mg/dL (8.4-10.2); Carbon Dioxide 27 mmol/L (22-32); Chloride 105 mmol/L (98-107); Creatine Kinase 101 U/L (30-135); Estimated Glomerular Filt Rate > 60.0 mL/min (>60); Globulin 2.6 g/dL (1.7-4.1); Glucose 93 mg/dL (70-100); HEMOLYSIS 16 (0-50); Lipase 213 U/L (23-300); Sodium 139 mmol/L (137-145); Total Protein 7.1 g/dL (6.3-8.2)
--- NOTE | 2020-02-04 11:41 | ED_ITS ---
HPI - Chest Pain General Chief Complaint: Chest Pain Stated Complaint: heart attack symptoms Time Seen by Provider: 02/04/20 11:20 Source: patient Mode of arrival: Wheelchair Limitations: language barrier (reed press feeder used) and other History of Present Illness HPI narrative: Patient is a 34-year-old female who presents with left-sided chest and abdominal pain ongoing for the last 3-4 days progressively getting worse. It now seems to be more in her chest it hurts every time she breathes or moves. She denies any fever or cough.She has not taken anything for pain. She denies any shortness of breath or heart palpitations. MD complaint: chest pain Related Data Home Medications Medication Instructions Recorded Confirmed trazodone #0 08/01/17 03/19/19 levetiracetam 500 mg PO BID 03/27/19 03/27/19 topiramate 03/27/19 topiramate 03/27/19 Previous Rx's Medication Instructions Recorded lamotrigine [Lamictal] 100 mg PO BID #60 tab 09/23/16 meclizine 25 mg PO BID-TID PRN #10 tab 04/02/19 ondansetron 4 mg PO Q6-8H PRN #7 tab 04/02/19 Allergies Allergy/AdvReac Type Severity Reaction Status Date / Time latex Allergy Mild ITCHING Verified 12/31/19 14:48 morphine Allergy Mild Verified 12/31/19 14:48 butalbital [From Fioricet] AdvReac Unknown Verified 12/31/19 14:48 Review of Systems Review of Systems Narrative: GENERAL: Denies chills, fatigue, malaise, fever, sweats, travel HEENT: Denies sinus pain, ear pain, sore throat, difficulty swallowing, neck pain RESPIRATORY: Denies dyspnea, cough, wheezing, hemoptysis, sputum. CARDIOVASCULAR: See HPI GASTROINTESTINAL: Denies nausea, vomiting, abdominal pain, diarrhea, constipation, melena. : Denies dysuria, frequency, incontinence, hematuria, urinary retention, flank pain. MUSCULOSKELETAL: Denies weakness, joint pain, or bony pain SKIN: No rash, no erythema, no pruritus NEUROLOGIC: Denies weakness, dizziness, headache, numbness, change in speech, confusion PSYCHIATRIC: No concerning psychosocial issues. 12 point review of systems is negative except for those stated above and HPI Patient History Medical History Cephalgia (Chronic) Chest pain (Inactive) Chronic cystitis (Inactive 03/28/16) Fibromyalgia (Inactive 06/19/15) Seizure disorder (Inactive 03/28/16) Surgical History Status post appendectomy Status post loop electrosurgical excision procedure (LEEP) of cervix Social History Smoking Status: Never smoker Smoking Status: Never smoker alcohol intake frequency: 0-2 drinks per day Substance Use Type: does not use Exam Initial Vital Signs Initial Vital Signs: Vital Signs Temperature 97.5 F L 02/04/20 11:13 Pulse Rate 83 02/04/20 11:13 Respiratory Rate 18 02/04/20 11:13 Blood Pressure 108/71 02/04/20 11:13 Pulse Oximetry 100 02/04/20 11:13 GENERAL: Appears in mild pain HEENT: Head atraumatic,EOMI, pupils reactive CARDIOVASCULAR: Regular rate and rhythm without murmurs, rubs or gallops. RESPIRATORY: Breath sounds equal bilaterally, no wheezes rales or rhonchi. ABDOMEN: Soft, nontender. Normoactive bowel sounds all 4 quadrants. No guarding or rebound. No right upper quadrant pain no epigastric pain minimal left upper quadrant pain EXTREMITIES: Normal range of motion, no clubbing or edema. Neurovascularly intact NEUROLOGICAL: Alert and oriented x4.Normal gait and speech. Cranial nerves II through XII grossly intact. SKIN: Warm, dry, no laceration, no petechiae, no rashes or lesions. Scores PERC Score Age greater than or equal to 50 years: No Heart rate greater than or equal to 100 bpm: No Room Air O2 Sat less than 95%: No Unilateral leg swelling: No Recent trauma or surgery: No Hemoptysis: No Prior PE or DVT: No Hormone Use: No Total PERC Score: 0 Course Orders Ordered: ED Orders 02/04/20 11:16 XR chest 1V Stat EKG-12 Lead Stat 02/04/20 11:20 Complete Blood Count AUTO DIFF Stat Comprehensive Metabolic Panel Stat D Dimer Stat Lipase Stat Partial Thromboplastin Time Stat Prothrombin Time INR Stat Troponin & CK Cardiac Panel Stat Discontinued Medications Acetaminophen (Tylenol) 975 mg PO NOW ONE Stop: 02/04/20 13:01 Last Admin: 02/04/20 13:08 Dose: 975 mg Documented by: NEHAL Ketorolac Tromethamine (Toradol) 30 mg IV NOW ONE Stop: 02/04/20 11:37 Last Admin: 02/04/20 11:45 Dose: 30 mg Documented by: JOSE Vital Signs Vital signs: Vital Signs - 8 hr 02/04/20 11:13 02/04/20 12:18 Temperature 97.5 F L Pulse Rate 83 83 Respiratory Rate 18 16 Blood Pressure 108/71 109/64 Pulse Oximetry 100 97 MDM - Chest Pain Lab Data Attestation: I reviewed the patient's lab results. Result diagrams: 02/04/20 11:20 02/04/20 11:20 Labs: Lab Results 02/04/20 02/04/20 02/04/20 Range/Units 11:20 11:20 11:20 WBC 7.3 (4.5-11.0) X10^3/uL RBC 4.35 (4.0-5.2) X10^6/uL Hgb 13.3 (12.0-16.0) g/dL Hct 40.1 (36-46) % MCV 92.2 (80-100) fL MCH 30.7 (26-34) PG MCHC 33.3 (30-36) % RDW 13.5 (11.6-14.8) % Plt Count 272 (150-400) X10^3/uL Neut % (Auto) 56.8 (50-75) % Lymph % (Auto) 28.9 (25-40) % [place] % (Auto) 10.4 (3-14) % Eos % (Auto) 2.9 (2-4) % Baso % (Auto) 1.0 (0-2) % Neut # (Auto) 4200 (6258-0575) /uL Lymph # (Auto) 2100 (0432-5507) /uL [place] # (Auto) 800 (0-900) /uL Eos # (Auto) 200 (0-450) /uL Baso # (Auto) 100 (0-100) /uL PT 11.5 (10.1-12.7) SECONDS INR 1.0 (0.9-1.3) APTT 34 D (26.4-36.2) SECONDS D-Dimer (<230) ng/mL Sodium 139 (137-145) mmol/L Potassium 4.0 (3.4-5.1) mmol/L Chloride 105 (98-107) mmol/L Carbon Dioxide 27 (22-32) mmol/L BUN 15 (7-17) mg/dL Creatinine 0.83 (0.52-1.04) mg/dL Estimated GFR > 60.0 (>60) mL/min BUN/Creatinine Ratio 18.1 (6-22) Glucose 93 (70-100) mg/dL Calcium 9.9 (8.4-10.2) mg/dL Total Bilirubin 0.3 (0.2-1.3) mg/dL AST 21 (14-36) IU/L ALT 16 (<35) IU/L Alkaline Phosphatase 49 (38-126) U/L Total Creatine Kinase 101 (30-135) U/L CK-MB (CK-2) 1.52 (<2.37) ng/mL CK-MB (CK-2) Rel Index 1.5 (1.5-5.0) % Troponin I < 0.012 (0.01-0.034) ng/mL Total Protein 7.1 (6.3-8.2) g/dL Albumin 4.5 (3.5-5.0) g/dL Globulin 2.6 (1.7-4.1) g/dL Albumin/Globulin Ratio 1.7 (1.0-2.8) Lipase 213 (23-300) U/L 02/04/20 Range/Units 11:20 WBC (4.5-11.0) X10^3/uL RBC (4.0-5.2) X10^6/uL Hgb (12.0-16.0) g/dL Hct (36-46) % MCV (80-100) fL MCH (26-34) PG MCHC (30-36) % RDW (11.6-14.8) % Plt Count (150-400) X10^3/uL Neut % (Auto) (50-75) % Lymph % (Auto) (25-40) % [place] % (Auto) (3-14) % Eos % (Auto) (2-4) % Baso % (Auto) (0-2) % Neut # (Auto) (2040-1353) /uL Lymph # (Auto) (6343-2650) /uL [place] # (Auto) (0-900) /uL Eos # (Auto) (0-450) /uL Baso # (Auto) (0-100) /uL PT (10.1-12.7) SECONDS INR (0.9-1.3) APTT (26.4-36.2) SECONDS D-Dimer < 200 (<230) ng/mL Sodium (137-145) mmol/L Potassium (3.4-5.1) mmol/L Chloride (98-107) mmol/L Carbon Dioxide (22-32) mmol/L BUN (7-17) mg/dL Creatinine (0.52-1.04) mg/dL Estimated GFR (>60) mL/min BUN/Creatinine Ratio (6-22) Glucose (70-100) mg/dL Calcium (8.4-10.2) mg/dL Total Bilirubin (0.2-1.3) mg/dL AST (14-36) IU/L ALT (<35) IU/L Alkaline Phosphatase (38-126) U/L Total Creatine Kinase (30-135) U/L CK-MB (CK-2) (<2.37) ng/mL CK-MB (CK-2) Rel Index (1.5-5.0) % Troponin I (0.01-0.034) ng/mL Total Protein (6.3-8.2) g/dL Albumin (3.5-5.0) g/dL Globulin (1.7-4.1) g/dL Albumin/Globulin Ratio (1.0-2.8) Lipase (23-300) U/L Imaging Data Chest x-ray: Radiologist's Impression: PROCEDURE: XR CHEST 1V INDICATIONS: chest pain TECHNIQUE: One view of the chest was acquired. COMPARISON: [facility], , XR CHEST 1V, 03/27/2019, 9:40. FINDINGS: Surgical changes and devices: None. Lungs and pleura: Lungs are clear. No pleural effusions or pneumothorax. Mediastinum: Mediastinal contours appear normal. Heart size is normal. Bones and chest wall: No suspicious bony lesions. Overlying soft tissues appear unremarkable. IMPRESSION: No acute cardiopulmonary disease process. Dictated by: Lilian Mcgee MD, PhD on 02/04/2020 at 11:41 Approved by: Lilian Mcgee MD, PhD on 02/04/2020 at 11:41 ECG Data Attestation: I personally reviewed and interpreted this ECG as follows: Prior ECG tracings: not available for review Interpretation: Rate 72 p.r. interval 162 QRS [address] elevation depres jorge luis or T-wave inversions similar to previous EKG MDM Narrative Medical decision making narrative: Blood work x-ray and EKG are overall reassuring. Special Makeup Fx Artist Instructor service is again used to explain results. At this time I believe this is more musculoskeletal. It has been ongoing for number of days she has a negative troponin negative D-dimer worse with movement and breathing. No sign of infection. Discharge Plan Departure Patient Disposition: Home Clinical Impression: Atypical chest pain Discharge Date/Time: 02/04/20 13:32 Instructions: Costochondritis, DI for Atypical Chest Pain Activity Restrictions/Additional Instructions: *You have been diagnosed with atypical chest pain *What to do: At this time I think this is more musculoskeletal. I recommend ice or heating pad 20-30 minutes at a time. You may require further testing with her primary care provider if your symptoms continue *Continue to take medications as directed Ibuprofen 800 mg every 8 hours with food if needed for pain for 1 week Tylenol 1000 mg every 6 hours if needed for pain *Follow up with your primary care provider in 2-3 days at [facility] *Return to ER if you should have increasing chest pain, heart palpitations, worsening abdominal pain nausea or vomiting or any new, worsening or concerning symptoms Prescriptions: No Action lamotrigine [Lamictal] 100 MG tablet 100 mg PO BID Qty: 60 RF: 3 trazodone 50 MG tablet Qty: 0 RF: 0 levetiracetam 500 mg tablet 500 mg PO BID RF: 0 topiramate 25 mg tablet RF: 0 topiramate 50 mg tablet RF: 0 ondansetron 4 mg tablet,disintegrating 4 mg PO Q6-8H PRN (Reason: nausea and vomiting) Qty: 7 RF: 0 meclizine 25 mg tablet,chewable 25 mg PO BID-TID PRN (Reason: dizziness or vertigo) Qty: 10 RF: 0 Stand Alone Forms: Work Release Note
[2020-02-04] MEDS: KETOROLAC 60 MG/2 ML VIAL 30 MG IV (11:45)
[2020-02-04 11:49] LABS: Troponin I < 0.012 ng/mL (0.01-0.034)
[2020-02-04 11:53] LABS: CKMB % Relative Index 1.5 % (1.5-5.0); Creatine Kinase MB 1.52 ng/mL (<2.37)
[2020-02-04 11:56] LABS: D Dimer < 200 ng/mL (<230)
[2020-02-04 12:18] VITALS: BP 109/64; PULSE 83; RESP 16; O2SAT 97
[2020-02-04] MEDS: ACETAMINOPHEN 325 MG TABLET 975 MG PO (13:08)
== END 2020-02-04 13:32 | disposition home or self-care (01) ==
PROVIDERS: Emergency Provider Emergency Medicine
DX: R07.89 Other chest pain (principal)
CPT/HCPCS: 36415; 71045; 80053; 82550; 82553; 83690; 84484; 85025; 85379; 85610; 85730; 93005; 93010; 96374; 99284; J1885